=== PATIENT | female | born 1935 | race Caucasian/White ===

== ENCOUNTER 2017-07-11 08:55 | Inpatient (IN) | payer MEDICARE, OTHER ==
--- NOTE | 2017-07-10 10:13 | HP ---
HISTORY AND PHYSICAL CHIEF COMPLAINT: Left shoulder pain. HISTORY OF PRESENT ILLNESS: The patient is an 82-year-old retired right-hand dominant female who presents with progressive left shoulder pain secondary to osteoarthrosis, worsening over the past several years. She is having pain with any attempted use and at night. She has tried previous injections and medications without significant improvement. PAST MEDICAL HISTORY: Significant for diabetes, arthritis, reflux disease. PAST SURGICAL HISTORY: Significant for right total hip arthroplasty, lumbar fusion, and tonsillectomy. CURRENT MEDICATIONS: Prilosec, thyroxine, atorvastatin. ALLERGIES: PENICILLIN. FAMILY HISTORY: Significant for heart disease, COPD, and cancer. SOCIAL HISTORY: Negative for current tobacco or alcohol use. REVIEW OF SYSTEMS: A 16-point review of systems is otherwise reviewed and is noncontributory. PHYSICAL EXAMINATION: On examination, the patient is approximately 5 foot 10, 180 pounds, of mesomorphic habitus. HEENT exam is nonfocal. Neck is supple. On examination of her left shoulder, she is tender about the anterior subacromial space. She has moderate crepitus. Active range of motion, forward elevation 90 degrees, external rotation with arm at side 20 degrees, internal rotation to L5. Motor strength is 5- over 5 for abduction and external rotation. Impingement test is positive. Her distal neurovascular exam appears intact in the left upper extremity. DIAGNOSTIC STUDIES: X-rays to include AP, outlet, and axillary views of the left shoulder obtained in the office show severe glenohumeral joint osteoarthrosis with maintained humeral head to acromial distance. IMPRESSION: Left severe glenohumeral joint osteoarthrosis. RECOMMENDATIONS: I talked to the patient regarding her treatment options. At this point, she is quite symptomatic and limited because of pain despite conservative measures. After thorough discussion, she opts to proceed with surgery. We will plan to proceed with left total shoulder arthroplasty versus reverse total shoulder arthroplasty. Risks and benefits were discussed at length in layman's terms. The patient underwent preoperative medical evaluation by Dr. Reyes. MMNEOL / RONANN: [id number] /
[~2017-07-11 08:55] MED LIST: ACETAMINOPHEN TAB 500 MG TAB PO ONE; CLINDAMYCIN 900 MG in DEXTROSE 5% IN WATER 50 ML IVPB ONE; MELOXICAM 7.5 MG TAB PO ONE; MIDAZOLAM 2 MG/2 ML VIAL IV PRN; ONDANSETRON 4 MG/2 ML VIAL IVP PRN; TRANEXAMIC ACID 1,000 MG in SODIUM CHLORIDE 0.9% 100 ML IVPB ONE; fentaNYL (PF) 50 MCG/ML 2 ML AMP IV PRN
[2017-07-11 09:33] LABS: Glucose,Whole Blood 92 mg/dL (75-99)
[2017-07-11] MEDS ORDERED: LIDOCAINE 1% 20 ML VIAL (10MG/ML) FOR IV START INTRADERMA ONE (09:34)
[2017-07-11] MEDS: LACTATED RINGERS 1,000 ML IV SCH ×2 (09:35→18:14)
[2017-07-11] MEDS ORDERED: MIDAZOLAM 2 MG/2 ML VIAL IV ONE (09:42)
[2017-07-11] MEDS ORDERED: fentaNYL (PF) 50 MCG/ML 2 ML AMP IV ONE (09:42)
--- NOTE | 2017-07-11 10:17 | P.ONQ ---
Anesthesiology Proc Note - PNB - Peripheral Nerve Block Performed Left Interscalene Single Time Out Performed: Yes Procedure Start Time: 09:42 Indication: Acute Post-Operative Pain, Analgesia Specifically requested for management of pain by DrElida: Jeison Mayes Sedation Type: Sedate with meaningful contact maintained Preparation: Sterile Prep Position: Supine Catheter: None Needle Types: Other (see comment) (Pajunk) Needle Size: 50mm (2") Needle Gauge: 21 Technique: Ultrasound Injectate: Other (see comment) (12.5cc 0.5% ropivicaine + 12.5cc 2% lidocaine) Adjunct: Epinephrine (see comment for dilution ratio) (1:200,000) Blood Aspirated: No Pain Paresthesia on Injection Noted: No Resistance on Injection: Normal Events: Uneventful and Well Tolerated
[2017-07-11] MEDS ORDERED: SODIUM CHLORIDE 0.9% 100 ML BAG ONE (10:56)
[2017-07-11] MEDS ORDERED: MIDAZOLAM 2 MG/2 ML VIAL ONE (10:56)
[2017-07-11] MEDS ORDERED: ePHEDrine SULFATE/0.9% NACL/PF 50 MG/5 ML SYRINGE IV ONE (10:56)
[2017-07-11] MEDS ORDERED: LIDOCAINE 1% INJ 10MG/ML (20 ML MDV) ONE (10:56)
[2017-07-11] MEDS ORDERED: fentaNYL (PF) 50 MCG/ML 2 ML AMP ONE (10:56)
[2017-07-11] MEDS ORDERED: PROPOFOL 10 MG/ML 20 ML VIAL IV ONE (10:56)
[2017-07-11] MEDS ORDERED: PHENYLEPHRINE-0.9% NACL SYG 1 MG/10 ML SYRINGE ONE (10:56)
[2017-07-11] MEDS ORDERED: SUCCINYLCHOLINE CHLORIDE 100 MG/5 ML SYR IV ONE (10:56)
[2017-07-11] MEDS ORDERED: TRANEXAMIC ACID 1,000 MG/10 ML VIAL ONE (10:56)
[2017-07-11] MEDS ORDERED: CLINDAMYCIN 1,800 MG in SODIUM CHLORIDE 0.9% IRRIGATIO 3,000 ML IRRIGATION ONE (11:40)
[2017-07-11] MEDS ORDERED: LACTATED RINGERS 1,000 ML IV ONE (12:25)
[2017-07-11] MEDS ORDERED: HYDROmorphone 1 MG/ML 1 ML SYRINGE IVP PRN ×2 (12:50)
[2017-07-11] MEDS ORDERED: SENNOSIDES-DOCUSATE SODIUM 1 EACH TAB PO PRN (12:50)
[2017-07-11] MEDS ORDERED: ONDANSETRON 4 MG/2 ML VIAL IVP PRN (12:50)
[2017-07-11] MEDS ORDERED: ACETAMINOPHEN TAB 325 MG TAB PO PRN (12:52)
--- NOTE | 2017-07-11 13:17 | P.OP ---
Date of Procedure: 07/11/17 Preoperative Diagnosis: Severe left glenohumeral joint osteoarthrosis-primary Postoperative Diagnosis: Same Procedure(s) Performed: Left total shoulder arthroplasty Implants: [employer] size 10 press-fit humeral stem, 52 mm x 18 mm eccentric humeral head, 48 mm pegged cemented glenoid component. Anesthesia: faith MANN Surgeon: Jeison Mayes Automotive Technician #1: Yakov Post Estimated Blood Loss (ml): 100 Pathology: other (Humeral head) Condition: stable Disposition: PACU Indications for Procedure: The patient's 82-year-old female who presents with progressive left shoulder pain secondary to osteoarthrosis despite extensive conservative measures. A discussion of the risks and benefits of operative intervention versus continued conservative measures was made with patient. She opted to proceed with surgery. Operative risks to include infection, neurovascular injury, development blood clots, possible fracture, possible dislocation, possible component loosening and failure need for subsequent procedures was discussed. Informed consent was obtained. Operative Findings: As below Description of Procedure: The patient was brought to the operating room, and after induction of general anesthesia was placed into a beachchair position. Bony prominences were appropriately padded. The left upper extending was prepped and draped in normal fashion. The bony outlines the acromion, distal clavicle, and coracoid process were outlined with a skin marker. A deltopectoral incision was then made lateral to the coracoid process extending approximately 12 cm. The skin was incised sharply. Subcu tissues were divided bluntly. Electrocautery was used for hemostasis. The deltopectoral interval was identified and the cephalic vein gently retracted laterally with the deltoid. Subdeltoid adhesions were bluntly dissected. A self-retaining retractor was placed. The upper one third of the pectoralis tendon was released with electrocautery to help facilitate exposure. The clavipectoral fascia was opened and the conjoined tendon was gently retracted medially. The bicipital groove was opened and the rotator cuff interval was opened. The rotator cuff appeared to be intact. Significant joint effusion was noted. The biceps was tenotomized and allowed to retract distally. The lesser tuberosity was osteotomized with a small sagittal saw. This was tagged with #2 Ethibond. The capsule was released from the anterior humeral neck under direct visualization. The humeral head was fully exposed. The inferior osteophytes and loose bodies were carefully removed. The head was gently dislocated. A starting hole was made in line with the humeral shaft and bicipital groove. The canal was then reamed by hand up to size 10. There is good distal fit and chatter. The cutting guide was then placed. I planned on 30 of retroversion. I planned on resection at the rotator cuff insertion. The cutting block was pinned in place. The humeral head cut was then made. The inferior osteophytes were carefully removed flush with the [place] cortical bone. A protecting plate was placed along the cut surface. Attention was then paid towards preparing the glenoid. Retractors were placed anterior and posteriorly. The labral tissue was debrided from a 6:00 to 12 o'clock position anteriorly. The posterior labrum was also released. There was adequate glenoid exposure at this point. A guidepin was placed in the central portion of the glenoid with the alignment guide. The glenoid was reamed out a bleeding bony surface with a 48 mm reamer. It sized most appropriate size 48 mm. The central pedicle was drilled. The peripheral peg holes were drilled with the alignment guide. The trial 48 mm central peg glenoid was placed and was fully seated. There was good anterior to posterior in addition to a superior to inferior fit. The trial component was removed. Pulsatile lavage was utilized. The bony surfaces were then dried. The peripheral peg holes were pressurized with cement and excess cement was removed. The central peg on the 48 mm component was bone grafted. This was then inserted and fully seated. After the cement had sufficiently hardened , attention was then paid towards preparing the proximal humerus. The appropriate broach was placed in 30 of retroversion and was fully seated. There is good rotational stability. A trial 52 x 18 mm eccentric head was placed in the appropriate alignment. The shoulder was gently reduced. It was taken through range of motion. I felt I was stable in flexion and extension with internal and external rotation. The trial components were then removed. A #2 Ethibond placed lateral to the bicipital groove for reattachment of the lesser tuberosity. The final size 10 press-fit humeral stem was inserted in 30 of retroversion and was fully seated. Again there was good rotational stability. Pulsatile lavage was again utilized. The 52 mm x 18 mm eccentric head was placed in the appropriate rotation to restore humeral height. This was gently impacted. The shoulder again was reduced. Again it was stable in flexion and extension with internal and external rotation. I felt there was adequate [place] of soft tissue tension. Pulsatile lavage was again utilized. The rotator interval was closed with #2 Ethibond suture. The lesser tuberosity was reattached with #2 Ethibond suture. The deltopectoral was closed with interrupted 2-0 Vicryl sutures. The subcu tissues reapproximated interrupted 2-0 Vicryl sutures. The skin was reapproximated with 3-0 subcuticular Prolene suture. Mastisol and Steri-Strips were applied. A sterile dressing was applied in addition to a sling. The patient was awoken from general anesthesia and transferred to recovery room in good condition. Blood loss was estimated at 100 mL. No complications were incurred. Sponge and needle counts were correct at the end the case.
--- NOTE | 2017-07-11 14:04 | XR ---
EXAMINATION TYPE: XR shoulder limited LT DATE OF EXAM: 07/11/2017 CLINICAL HISTORY: Status post total left shoulder arthroplasty TECHNIQUE: Single frontal view of left shoulder is obtained. COMPARISON: None. FINDINGS: Metallic hardware from left shoulder arthroplasty is felt satisfactory position. Subcutaneo us gas surrounds visualized portion of proximal humerus. Note is made of partial visualization of lef t midlung opacity could reflect atelectasis and/or infiltrate. This could also reflect fluid tracking into fissure. IMPRESSION:: Metallic hardware from left shoulder arthroplasty is satisfactory in position. Left midl bailey opacity could reflect pleural effusion or atelectasis and/or infiltrate. Consider chest x-ray cor relation.
[2017-07-11] MEDS: HYDROmorphone 1 MG/ML 1 ML SYRINGE IVP ONE ×2 (16:02→17:20)
[2017-07-11] MEDS ORDERED: ONDANSETRON 4 MG/2 ML VIAL IVP ONE (16:06)
[2017-07-11 18:44] VITALS: BMI 24.0
[2017-07-11] MEDS: traMADol 50 MG TAB PO SCH ×2 (19:11→22:23)
[2017-07-11] MEDS: CLINDAMYCIN 900 MG in DEXTROSE 5% IN WATER 50 ML IVPB SCH ×2 (19:12)
[2017-07-11] MEDS ORDERED: ATORVASTATIN 20 MG TAB PO SCH (21:00)
[2017-07-12] MEDS ORDERED: ONDANSETRON 4 MG/2 ML VIAL ONE (01:25)
[2017-07-12] MEDS ORDERED: HYDROmorphone 1 MG/ML 1 ML SYRINGE ONE (01:25)
[2017-07-12] MEDS: CLINDAMYCIN 900 MG in DEXTROSE 5% IN WATER 50 ML IVPB SCH ×2 (03:44)
[2017-07-12] MEDS: LEVOTHYROXINE 50 MCG TAB PO SCH (05:11)
[2017-07-12 06:40] LABS: Basophils % (A) 0 %; CHCM 31.2; Eosinophils % (A) 0 %; HCT 39.8 % (34.0-46.0); HDW 2.25; HGB 12.2 gm/dL (11.4-16.0); Hypochromasia Slight; Luc # (Auto) 0.14; Luc % (Auto) 1; Lymphocytes # (A) 0.9 k/uL (1.0-4.8); Lymphocytes % (A) 8 %; MCH 29.5 pg (25.0-35.0); MCHC 30.5 g/dL (31.0-37.0); MCV 96.7 fL (80.0-100.0); Mean Platelet Volume 7.7; Monocytes # (A) 0.8 k/uL (0-1.0); Monocytes % (A) 6 %; Neutrophils # (A) 10.1 k/uL (1.3-7.7); Neutrophils % (A) 85 %; RBC 4.12 m/uL (3.80-5.40); RDW 13.8 % (11.5-15.5); WBC 11.9 k/uL (3.8-10.6); WBC (Perox) 12.31
[2017-07-12] MEDS ORDERED: PANTOPRAZOLE 40 MG TABLET PO SCH (07:30)
[2017-07-12] MEDS: CALCIUM CARBONATE 500 MG CHEWABLE PO SCH (08:18)
[2017-07-12] MEDS: LACTATED RINGERS 1,000 ML IV SCH (08:19)
[2017-07-12] MEDS ORDERED: ENOXAPARIN 30 MG/0.3 ML SYRINGE SQ SCH (09:00)
[2017-07-12] MEDS ORDERED: ALFALFA PO SCH (09:00)
[2017-07-12] MEDS ORDERED: OMEGA PO SCH (09:00)
[2017-07-12] MEDS: traMADol 50 MG TAB PO SCH ×4 (10:40→21:20)
--- NOTE | 2017-07-12 12:46 | P.PN ---
Subjective Progress Note Date: 07/12/17 Principal diagnosis: Status post left total shoulder arthroplasty Patient seen today resting in her hospital bed, he is ecchymosis present at bedside. Patient is doing very well, her pain is controlled. She denies any headaches, lightheadedness, chest pain or shortness of breath. Objective - Vital Signs Vital signs: Vital Signs Temp 97.5 F L 07/12/17 07:00 Pulse 69 07/12/17 08:00 Resp 17 07/12/17 08:00 BP 139/82 07/12/17 07:00 Pulse Ox 93 L 07/12/17 07:00 Intake & Output 07/11/17 07/12/17 07/12/17 18:59 06:59 18:59 Intake Total 1807 450 Output Total 400 400 300 Balance 1407 50 -300 Weight 77.111 kg Intake: IV 1807 Intake, IV Titration 450 Amount Clindamycin 900 mg In 50 Dextrose 5% in Water 50 ml @ 100 mls/hr IVPB Q8H ELVIA Rx#:[id number] Lactated Ringers 1,000 ml 400 @ 50 mls/hr IV .Q20H ELVIA Rx#:[id number] Output: Urine 300 400 300 Uretheral (Hall) 300 Estimated Blood Loss 100 Other: Voiding Method Indwelling Catheter Indwelling Catheter Indwelling Catheter - Exam Left upper extremity: Incision is clean, dry, and intact. Sensory exam to light touch throughout the extremities intact. She is able to wiggle all the fingers, flexion and extension and the wrist are intact. - Labs CBC & Chem 7: 07/12/17 06:13 Labs: Abnormal Lab Results - Last 24 Hours (Table) 07/12/17 Range/Units 06:13 WBC 11.9 H (3.8-10.6) k/uL MCHC 30.5 L (31.0-37.0) g/dL Neutrophils # 10.1 H (1.3-7.7) k/uL Lymphocytes # 0.9 L (1.0-4.8) k/uL Assessment and Plan Plan: Assessment: 1. Postop day #1 status post left total shoulder arthroplasty Plan: 1. Pain control, continue supportive oral medication 2. GI and DVT prophylaxis, aspirin 325 mg twice a day 3. Wound care instructions were discussed with patient 4. Pendular exercises at home 5. Medical recommendations 6. Discharge planning: Patient will be discharged home today Time with Patient: Less than 30
--- NOTE | 2017-07-12 12:48 | P.DS ---
Providers Date of admission: 07/11/17 08:55 Expected date of discharge: 07/12/17 Attending physician: Jeison Mayes Primary care physician: Marisol Yanezbagh [facility] Hospital Course: Date of admission: 07/11/2017 Date of discharge: 07/12/2017 Admission diagnosis: Status post left total shoulder arthroplasty Discharge diagnosis: Same Attending physician: Dr. Mayes Surgical procedures: Left total shoulder arthroplasty Brief history: Patient is a 82-year-old female with a history of progressive primary left shoulder osteoarthritis. At this point patient has failed conservative treatment measures and has opted to proceed with a elective left total shoulder arthroplasty. Hospital course: Details of patient's surgery can be found in operative report. Patient tolerated the procedure well and was subsequently transported to orthopedic floor. Patient's orthopeidc and medical care was provided daily. Patient had daily laboratory tests performed for evaluation of overall blood counts. Patient had daily physical therapy to include strengthening range of motion as well as education with walker ambulation. Patient was treated with Lovenox for their postoperative DVT prophylaxis during their inpatient stay. Patient was noted to have a relatively uneventful postoperative course. Patient reported satisfactory pain control with oral pain medications by postoperative day 0. Patient showed satisfactory progress with physical therapy. Patient moved steadily through the program and had no difficulty meeting the goals by postoperative day 0. Given patient's otherwise satisfactory course and having met physical therapy goals, plan is to discharge patient home on postoperative day 0. Discharge condition/disposition: Patient will be discharged home in stable condition. Discharge medications: Instructions are given on resumption of patient's normal daily medications per primary care recommendation, in addition patient will be prescribed tramadol 50 mg, aspirin 325 mg. Discharge instructions: 1. Wound care and infection precautions, keep incision dry and covered while showering, no lotions, creams, moisturizers. No soaking, tubs, pools, hottubs. Do not scrub over the incision. 2. Utilize arm sling, pendular exercises 2-3 times a day 3. Ice and elevate when necessary. Do not exceed 20 minutes per hour with ice pack. 4. Utilize compression sleeve until seen at first follow up appointment. 5. Visiting nursing care. 6. Pain meds and anticoagulants per prescription. 7. Pain medication has potential to cause constipation. Increase oral fluid and fiber intake. Contact primary care provider if you have not had a bowel movement within 48 hours after discharge 8. No anti-inflammatory medication until discussed at first post operative visit, this including Motrin, Aleve, Mobic, Diclofenac 9. Follow up in office at 2 weeks postop with Marcelino Post PA-C 10. Follow up with your primary care doctor 7-10 days after discharge. 11. Contact [facility] with any questions, . Procedures: Left total shoulder arthroplasty Patient Condition at Discharge: Good Plan - Discharge Summary Discharge Rx Participant: Yes New Discharge Prescriptions: New Aspirin 325 mg PO BID #60 tab traMADol HCl [Ultram] 50 mg PO Q6H PRN #40 tab PRN Reason: Pain No Action Omeprazole [PriLOSEC] 20 mg PO AC-BRKFST Levothyroxine Sodium [Synthroid] 50 mcg PO DAILY Atorvastatin [Lipitor] 20 mg PO HS Multivitamins, Thera [Multivitamin (formulary)] 1 tab PO DAILY [place]-3 1 cap PO DAILY Calcium Carbonate [Calcium] 1,200 mg PO DAILY [place] 3,250 tab PO DAILY Discharge Medication List [place] 3,250 tab PO DAILY 07/05/17 [History] Atorvastatin [Lipitor] 20 mg PO HS 07/05/17 [History] Calcium Carbonate [Calcium] 1,200 mg PO DAILY 07/05/17 [History] Levothyroxine Sodium [Synthroid] 50 mcg PO DAILY 07/05/17 [History] Multivitamins, Thera [Multivitamin (formulary)] 1 tab PO DAILY 07/05/17 [History ] [place]-3 1 cap PO DAILY 07/05/17 [History] Omeprazole [PriLOSEC] 20 mg PO AC-BRKFST 07/05/17 [History] Aspirin 325 mg PO BID #60 tab 07/12/17 [Rx] traMADol HCl [Ultram] 50 mg PO Q6H PRN #40 tab 07/12/17 [Rx] Follow up Appointment(s)/Referral(s): [facility], [NON-STAFF] - Yakov Post PAC [PHYSICIAN MANAGER SIGN] - 2 Weeks Activity/Diet/Wound Care/Special Instructions: Orthopedic Discharge Instructions: 1. Wound care and infection precautions, [keep incision dry and covered while showering], no lotions, creams, moisturizers. No soaking, pools, hot tubs. Do not scrub over incision. 2. Utilize arm sling, pendular exercises 2-3 times a day with 3. Ice and elevate when necessary. Do not exceed 20 minutes per hour with ice pack. 4. Utilize compression sleeve until seen at first follow up appointment. 5. Visiting nursing care. 6. Pain meds and anticoagulants per prescription. 7. Pain medication has potential to cause constipation. Increase oral fluid and fiber intake. Contact primary care provider if you have not had a bowel movement within 48 hours after discharge. 8. No anti-inflammatory medication until discussed at first post operative visit, this including Motrin, Aleve, Mobic, Diclofenac. 9. Follow up in office at 2 weeks postop with Marcelino Post PA-C 10. Follow up with your primary care doctor 7-10 days after discharge. 11. Contact [facility] with any questions, . Discharge Disposition: HOME WITH HOME HEALTH SERVICES
[2017-07-12] MEDS: MULTIVITAMINS, THERA 1 EACH TAB PO SCH (15:00)
[2017-07-12 15:42] VITALS: RESP 16
[2017-07-12] MEDS ORDERED: PANTOPRAZOLE 40 MG/10 ML VIAL IVP ONE (16:15)
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
[2017-07-12] MEDS: PANTOPRAZOLE 40 MG/10 ML VIAL IVP SCH (21:20)
[2017-07-13 01:22] VITALS: BP 127/71; TEMP 98.4
[2017-07-13] MEDS: LACTATED RINGERS 1,000 ML IV SCH (04:36)
[2017-07-13] MEDS: LEVOTHYROXINE 50 MCG TAB PO SCH (04:37)
[2017-07-13 07:20] LABS: Basophils % (A) 0 %; CHCM 31.1; Eosinophils # (A) 0.1 k/uL (0-0.7); Eosinophils % (A) 1 %; HCT 33.4 % (34.0-46.0); HDW 2.27; HGB 10.8 gm/dL (11.4-16.0); Hypochromasia Slight; Luc # (Auto) 0.13; Luc % (Auto) 1; Lymphocytes # (A) 1.2 k/uL (1.0-4.8); Lymphocytes % (A) 12 %; MCH 30.5 pg (25.0-35.0); MCHC 32.4 g/dL (31.0-37.0); Mean Platelet Volume 8.6; Monocytes # (A) 0.9 k/uL (0-1.0); Monocytes % (A) 9 %; Neutrophils # (A) 7.4 k/uL (1.3-7.7); Neutrophils % (A) 77 %; RBC 3.56 m/uL (3.80-5.40); RDW 14.8 % (11.5-15.5); WBC 9.7 k/uL (3.8-10.6); WBC (Perox) 10.22
[2017-07-13] MEDS: PANTOPRAZOLE 40 MG/10 ML VIAL IVP SCH (08:43)
[2017-07-13 08:56] VITALS: PULSE 69
[2017-07-13] MEDS ORDERED: HYDROmorphone 0.5 MG/0.5 ML SYRINGE IVP PRN ×2 (09:04→09:05)
[2017-07-13] MEDS: CALCIUM CARBONATE 500 MG CHEWABLE PO SCH (09:37)
[2017-07-13] MEDS: traMADol 50 MG TAB PO SCH ×2 (09:37→14:07)
--- NOTE | 2017-07-13 11:18 | P.PN ---
Subjective Progress Note Date: 07/13/17 Patient is status post left total shoulder arthroplasty. She was initially was be discharged yesterday however, she had 2 episodes of vomiting black material. Patient was placed on Protonix and aspirin was held. GI service was consulted. Hemoglobin has dropped from 12.2-10.8. Patient has been given regular breakfast this morning. She's had no further episodes of vomiting. And if there is no recurrence of vomiting per nursing staff GI service recommended the patient could be discharged home if she tolerates diet. Patient is passing gas. No abdominal pain. No bowel movement. No further nausea and vomiting. No difficulty urinating. Pain is controlled the left shoulder. Objective - Vital Signs Vital signs: Vital Signs Temp 98.4 F 07/13/17 00:00 Pulse 69 07/13/17 08:00 Resp 16 07/13/17 08:00 BP 127/71 07/13/17 00:00 Pulse Ox 92 L 07/13/17 00:00 Intake & Output 07/12/17 07/13/17 07/13/17 18:59 06:59 18:59 Output Total 500 Balance -500 Weight 77.111 kg 77.111 kg Output: Urine 300 Uretheral (Hall) 300 Emesis 200 Other: Voiding Method Indwelling Catheter Toilet # Voids 2 4 # Bowel Movements 1 1 - Exam Head normocephalic Neck supple Lungs clear to auscultation bilaterally no wheezing or crackles Heart regular rate and rhythm S1-S2, no rub or gallop Abdomen is soft nontender nondistended positive bowel sounds no hepatosplenomegaly Extremities no edema. Left arm dressing clean dry and it tapped for the left shoulder. Arm is in sling. +2 radial pulse. 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 #2 episodes of vomiting of black material twice today, at this time will hold Lovenox withhold ASA Will consult gastroenterology for possible EGD if those episodes continue, patient was placed on Protonix 40 mg IV twice daily. Patient evaluated by GI service. The plan is to see if patient tolerates diet before discharge home. At this point there is no EGD scheduled #3 underlying history of hypothyroidism continue with Synthroid 50 g daily #4 underlying history of hyperlipidemia maintained on Lipitor continue Will follow during this admission for medical management Anticipating discharge home if patient tolerates diet without any further episodes of vomiting and is cleared by GI service. I performed an examination of the patient and discussed their management with the physician [employer]. I have reviewed the Physician [employer] Dec[employer]ator's notes and agree with the documented findings and plan of care
--- NOTE | 2017-07-13 12:16 | CONS ---
CONSULTATION DATE OF SERVICE: 07/13/2017 REASON FOR CONSULTATION: Coffee-grounds emesis. HISTORY OF PRESENT ILLNESS: The patient is an 82-year-old pleasant white female who underwent an elective left shoulder surgery 2 days ago and following the surgery, had some epigastric discomfort and had two episodes of coffee-grounds emesis. We are hence consulted in regards to this issue. Her surgery was 2 days ago and she had two episodes of emesis yesterday. Overnight, she did not have any further episodes. This morning she is feeling good. No abdominal pain. No nausea, vomiting. She denies any prior history of peptic ulcer disease. No recent NSAID use. She states she is hungry and wants to eat now. PAST MEDICAL HISTORY: Significant for GERD, hypertension, hyperlipidemia, hypothyroidism. PAST SURGICAL HISTORY: Recent left shoulder surgery 2 days ago, history of total right hip, lesion of the back. MEDICATIONS: At home include multivitamin, Synthroid, Lipitor, calcium, tramadol, aspirin, Prilosec. SOCIAL HISTORY: No smoking or alcohol use. ALLERGIES: HYDROCODONE, PENICILLIN, LATEX. FAMILY HISTORY: Brother has DVT. Sister had some kind of a cancer. REVIEW OF SYSTEMS: CARDIOPULMONARY: No chest pain, shortness of breath. GENITOURINARY: No dysuria or hematuria. MUSCULOSKELETAL: Unremarkable. SKIN: Unremarkable. ENDOCRINE: Unremarkable. PSYCHIATRIC: Unremarkable. NEUROLOGY: Unremarkable. ENT: Vision unremarkable. CONSTITUTIONAL: No recent weight loss. No fever, chills, night sweats. PHYSICAL EXAMINATION: She appears comfortable, in no apparent distress. Vital signs are stable. Blood pressure is 127/71, pulse 86, temperature 98.4. HEENT examination is remarkable, conjunctivae or pink, sclera nonicteric. Oral cavity no lesions. NECK: No JVD or lymph node enlargement. Chest was clear to auscultation. HEART: Regular rate and rhythm. Abdomen is soft. Bowel sounds are positive. No organomegaly. EXTREMITIES: No pedal edema. Left shoulder in cast. NEURO: Alert and oriented x3. No focal deficits. LABS: From yesterday, hemoglobin was 12.2, this morning is 10.8. WBC 11.9 and platelets are normal. IMPRESSION: This is a lady who presents to the hospital for an elective left shoulder surgery, which was done 2 days ago and yesterday had some epigastric discomfort and had a small amount of coffee-grounds emesis x1. Hemoglobin remained stable. She presently is symptom-free for the last 24 hours. No prior history of peptic ulcer disease, presently hemodynamically stable and no active bleeding. RECOMMENDATIONS: 1. Continue with Protonix 40 mg q.12 hours. 2. Advance diet as tolerated. 3. If the patient is doing well, she can be discharged home with outpatient and continue with Protonix 40 mg twice daily for 1 month and then decrease it to once daily. If she has further symptoms, she can follow up in the office. Thank you for this consultation. MMNEOL / RONANN: [id number] /
--- NOTE | 2017-07-13 12:33 | P.PN ---
Subjective Progress Note Date: 07/13/17 Principal diagnosis: Status post left total shoulder arthroplasty Patient seen today resting in her hospital bed, she appears comfortable. Patient did stay last night due to concerns from internal medicine and GI regarding the morning episode of emesis with dark material. They mention if she had no further episodes she will be discharged home today. Patient states that she feels well at this time. Objective - Vital Signs Vital signs: Vital Signs Temp 98.4 F 07/13/17 00:00 Pulse 69 07/13/17 08:00 Resp 16 07/13/17 08:00 BP 127/71 07/13/17 00:00 Pulse Ox 92 L 07/13/17 00:00 Intake & Output 07/12/17 07/13/17 07/13/17 18:59 06:59 18:59 Output Total 500 Balance -500 Weight 77.111 kg 77.111 kg Output: Urine 300 Uretheral (Hall) 300 Emesis 200 Other: Voiding Method Indwelling Catheter Toilet # Voids 2 4 # Bowel Movements 1 1 - Exam Left upper extremity: Incision is clean, dry, and intact. Sensory exam to light touch throughout the extremities intact. She is able to wiggle all the fingers, flexion and extension and the wrist are intact. - Labs CBC & Chem 7: 07/13/17 06:35 Labs: Abnormal Lab Results - Last 24 Hours (Table) 07/13/17 Range/Units 06:35 RBC 3.56 L (3.80-5.40) m/uL Hgb 10.8 L (11.4-16.0) gm/dL Hct 33.4 L (34.0-46.0) % Assessment and Plan Plan: Assessment: 1. Postop day #2 status post left total shoulder arthroplasty Plan: 1. Pain control, continue supportive oral medication 2. GI and DVT prophylaxis, aspirin 325 mg twice a day 3. Wound care instructions were discussed with patient 4. Pendular exercises at home 5. Medical recommendations 6. Discharge planning: Patient will be discharged home today Time with Patient: Less than 30
[2017-07-13] MEDS: MULTIVITAMINS, THERA 1 EACH TAB PO SCH (13:53)
== END 2017-07-13 15:20 | disposition home health service (06) | DRG 483 ==
LOC: 2ORMAIN 08:55 → 3SUR 13:05
PROVIDERS: ADMIT Orthopaedic Surgery; ATTEND Orthopaedic Surgery
PROC: 0RRK0JZ Replacement of Left Shoulder Joint with Synthetic Substitute, Open Approach (ICD-10-PCS; principal; 2017-07-11 10:55)
DX: M19.012 Primary osteoarthritis, left shoulder (principal); E11.9 Type 2 diabetes mellitus without complications; I10 Essential (primary) hypertension; E03.9 Hypothyroidism, unspecified; E78.5 Hyperlipidemia, unspecified; K21.9 Gastro-esophageal reflux disease without esophagitis; Z79.82 Long term (current) use of aspirin; Z79.899 Other long term (current) drug therapy; Z82.5 Family history of asthma and other chronic lower respiratory diseases; Z96.641 Presence of right artificial hip joint; Z88.0 Allergy status to penicillin
CPT/HCPCS: 64415; 85025; 88300

== ENCOUNTER → 2020-02-25 | Outpatient (CLI) | payer MEDICARE, OTHER | END | disposition home or self-care (01) | LOC: LABPAT 10:09 | PROVIDERS: ATTEND Orthopaedic Surgery | DX: Z01.812 Encounter for preprocedural laboratory examination (principal) | CPT/HCPCS: 87070 ==

== ENCOUNTER 2020-03-03 08:29 | Inpatient (IN) | payer MEDICARE, OTHER ==
[2020-02-27 08:48] VITALS: BMI 23.7
--- NOTE | 2020-03-02 11:43 | HP ---
HISTORY AND PHYSICAL CHIEF COMPLAINT: Right shoulder pain. HISTORY OF PRESENT ILLNESS: Patient is an 85-year-old, right-hand dominant, retired female who presents with progressive right shoulder pain worsening over the past 1-2 years. She notes significant stiffness along with pain with any attempted use. She is also having significant night symptoms. She has tried medications in addition to therapy and injections without much relief. PAST MEDICAL HISTORY: Significant for reflux disease, hypothyroidism, and type 2 diabetes along with arthritis. PAST SURGICAL HISTORY: Significant for spinal fusion, total hip arthroplasty, tonsillectomy, and left total shoulder arthroplasty. CURRENT MEDICATIONS: Levothyroxine and omeprazole. She notes allergies to PENICILLIN. FAMILY HISTORY: Significant for cancer and heart disease. SOCIAL HISTORY: Negative for current tobacco or alcohol use. 16 POINT REVIEW OF SYSTEMS: Otherwise reviewed and is noncontributory. PHYSICAL EXAMINATION: On examination, the patient is approximately 5 foot 10, 180 pounds of mesomorphic habitus. HEENT: Exam is nonfocal. Neck is supple. On examination of her right shoulder, she is tender about the anterior subacromial space. She has moderate subacromial crepitus. Active range of motion, forward elevation 60 degrees, external rotation with arms at side 15 degrees, internal rotation to S1. Motor strength is 5/5 for abduction and external rotation. Passively, I am able to forward elevate her to 110 degrees. Impingement test, NEER test, and Speed test are positive. Her distal neurovascular exam appears intact otherwise in the right upper extremity. Three views of the right shoulder obtained in the office show severe glenohumeral joint osteoarthrosis with [id number] changes. There is subchondral sclerosis. IMPRESSION: Right severe glenohumeral joint osteoarthrosis-symptomatic. RECOMMENDATIONS: I talked to the patient at length regarding her condition and treatment options. At this point, she is quite symptomatic and opts to proceed with surgery. Will plan to proceed with right total shoulder arthroplasty. Risks and benefits were discussed at length in layman's terms. We will likely keep the patient for a 23-hour hold postoperatively. KAYLEIGH / RONANN: [id number] /
[~2020-03-03 08:29] MED LIST changes: -CLINDAMYCIN 900 MG in DEXTROSE 5% IN WATER 50 ML IVPB ONE; -MIDAZOLAM 2 MG/2 ML VIAL IV PRN; -ONDANSETRON 4 MG/2 ML VIAL IVP PRN; -fentaNYL (PF) 50 MCG/ML 2 ML AMP IV PRN
[2020-03-03] MEDS ORDERED: MIDAZOLAM 2 MG/2 ML VIAL IV PRN (09:00)
[2020-03-03] MEDS ORDERED: LIDOCAINE 1% (10MG/ML) FOR IV START INTRADERMA PRN (09:00)
[2020-03-03] MEDS ORDERED: fentaNYL (PF) 50 MCG/ML 2 ML AMP IV PRN (09:00)
[2020-03-03] MEDS ORDERED: ONDANSETRON 4 MG/2 ML VIAL IVP ONE (09:00)
[2020-03-03] MEDS ORDERED: DEXAMETHASONE SOD PHOSPHATE 10 MG/ML 1 ML VIAL IV ONE (09:00)
[2020-03-03] MEDS ORDERED: ACETAMINOPHEN TAB 500 MG TAB ONE (12:46)
[2020-03-03] MEDS ORDERED: ONDANSETRON 4 MG/2 ML VIAL ONE (12:46)
[2020-03-03 12:53] LABS: Glucose,Whole Blood 92 mg/dL (75-99)
[2020-03-03] MEDS: LACTATED RINGERS 1,000 ML IV SCH (12:56)
[2020-03-03] MEDS ORDERED: ROCURONIUM BROMIDE 10 MG/ML 5 ML VIAL IV ONE (13:30)
[2020-03-03] MEDS ORDERED: SUCCINYLCHOLINE CHLORIDE 100 MG/5 ML SYR IV ONE (13:30)
[2020-03-03] MEDS ORDERED: ROPIVACAINE 5 MG/ML 30 ML VIAL ONE (13:30)
[2020-03-03] MEDS ORDERED: NEOSTIGMINE 1 MG/ML 10 ML VIAL ONE (13:30)
[2020-03-03] MEDS ORDERED: SODIUM CHLORIDE 0.9% 100 ML BAG ONE (13:30)
[2020-03-03] MEDS ORDERED: LIDOCAINE 1% INJ 10MG/ML (20 ML MDV) ONE (13:30)
[2020-03-03] MEDS ORDERED: PROPOFOL 10 MG/ML 20 ML VIAL IV ONE (13:30)
[2020-03-03] MEDS ORDERED: fentaNYL (PF) 50 MCG/ML 2 ML AMP ONE (13:30)
[2020-03-03] MEDS ORDERED: MIDAZOLAM 2 MG/2 ML VIAL ONE (13:30)
[2020-03-03] MEDS ORDERED: TRANEXAMIC ACID 1,000 MG/10 ML VIAL ONE (13:30)
[2020-03-03] MEDS ORDERED: PHENYLEPHRINE-0.9% NACL SYG 1 MG/10 ML SYRINGE ONE (13:30)
[2020-03-03] MEDS ORDERED: GLYCOPYRROLATE 0.2 MG/ML 2 ML VIAL ONE (13:30)
[2020-03-03] MEDS ORDERED: ceFAZolin 3,000 MG in SODIUM CHLORIDE 0.9% IRRIGATIO 3,000 ML IRRIGATION ONE (14:06)
[2020-03-03] MEDS ORDERED: LACTATED RINGERS 1,000 ML IV ONE ×2 (14:46)
[2020-03-03] MEDS ORDERED: HYDROmorphone 0.5 MG/0.5 ML SYRINGE IVP PRN (15:23)
[2020-03-03] MEDS ORDERED: ONDANSETRON 4 MG/2 ML VIAL IVP PRN (15:23)
[2020-03-03] MEDS ORDERED: ACETAMINOPHEN TAB 325 MG TAB PO PRN (15:27)
--- NOTE | 2020-03-03 15:47 | P.OP ---
Date of Procedure: 03/03/20 Preoperative Diagnosis: Right severe glenohumeral joint osteoarthrosis Postoperative Diagnosis: Same Procedure(s) Performed: Right total shoulder arthroplasty Implants: [employer] size 14 press-fit humeral stem was size 14 body, 52 x 18 mm eccentric humeral head, 48 mm cemented pegged glenoid component. Anesthesia: MACKENZIE Surgeon: Jeison Mayes [employer] Teacher #1: Yakov Post Estimated Blood Loss (ml): 150 Pathology: other (Humeral head) Condition: stable Disposition: PACU Indications for Procedure: The patient's an 85-year-old female who presents with progressive right shoulder pain secondary osteoarthrosis despite conservative measures. A discussion of the risks and benefits of operative intervention versus continued conservative measures was made with the patient. She opted to proceed with surgery. Operative risks to include infection, neurovascular injury, development of blood clots, possible fracture, possible component loosening and need for subsequent procedures was discussed. Informed consent was obtained. Operative Findings: As below Description of Procedure: The patient was brought to the operating room, and after induction of general anesthesia was placed in the beachchair position. The bony prominences were appropriately padded. The right upper extremity was prepped and draped in normal fashion. A deltopectoral incision was then made lateral to the coracoid process extending approximately 12 cm. The skin was incised sharply. Subcutaneous tissues were divided bluntly. Electrocautery was used for hemostasis. The deltopectoral interval was identified and the cephalic vein gently retracted laterally with the deltoid. Subdeltoid adhesions were bluntly dissected. A self-retaining retractor was placed. The clavipectoral fascia was opened and the conjoined tendon gently retracted medially. The upper one third of the pectoralis major was released to help facilitate exposure. The biceps was identified and the sheath was opened. The rotator interval was opened. The biceps was tenotomized and allowed to retract distally. The lesser tuberosity osteotomy was performed with a small sagittal saw. This completed with an osteotome. The humeral head was then exposed releasing the capsule off the humeral neck. The shoulder was gently dislocated. A starting hole was made in the head in line with the humeral shaft. The shaft was reamed by hand up to 14 mm. There is good distal chatter. The cutting guide was placed planning on 8 cut flush with the rotator cuff insertion and 30 of retroversion. The cutting block was pinned in place. The humeral head cut was then made. This measured most appropriately at 52 x 18 mm. Residual inferior osteophytes were carefully removed flush with the skull valley cortical bone. A posterior glenoid retractor was placed. The glenoid was then exposed releasing the labrum from the 12 to 6 o'clock position. Residual labral tissue was removed. The glenoid sized most appropriate [] mm. A guidewire was then inserted planning on the appropriate version. The glenoid was reamed down to a bleeding bony surface. The central peg hole was drilled. The alignment guide was placed in the peripheral peg holes drilled. The trial size 48 mm glenoid was placed and was fully seated. There was good anterior to posterior and inferior to superior fit. The trial component was removed. Pulsatile lavage was utilized. The bony surface was dried. The peripheral peg holes were then pressurized with cement utilizing a syringe. Excess cement was removed. A central peg glenoid was then placed and was fully seated. This was gently impacted. This was held in place until the cement had sufficiently hardened. Attention was then paid again towards preparing the proximal humerus. The appropriate broach was placed in 30 of retroversion and was fully seated. An eccentric 52 x 18 mm humeral head was placed. The shoulder was gently reduced. It was taken through a range of m otion. It was felt to be stable in flexion and extension with internal and external rotation. I felt there was adequate latter-day of soft tissue tension. The shoulder was gently dislocated. The trial components were then removed. A #2 Ethibond was placed laterally for reattachment of the lesser tuberosity. The humeral stem was inserted in 30 of retroversion and was fully seated. There was good rotational stability. The eccentric 52 x 18 mm humeral head was gently impacted. The shoulder was then gently reduced and taken through range of motion and was felt to be stable. Pulsatile lavage was utilized. Lesser tuberosity was reattached utilizing #2 Ethibond suture. The rotator interval was closed with #2 Ethibond suture. She had minimal drainage at this point therefore a deep drain was not placed. The deltopectoral interval was closed with interrupted 2-0 Vicryl sutures. The subcu tissues were reapproximated with interrupted 2-0 Vicryl sutures. The skin was reprepped with 3-0 subcuticular Prolene suture. Steri-Strips were applied. A sterile dressing was applied in addition to a sling. The patient was then awoken from general anesthesia and transferred to recovery room in good condition. Blood loss was estimated at 150 mL. No complications were incurred. Sponge and needle counts were correct at the end the case. Marcelino SUAREZ assisted during the major components the case to include exposure, resection, implantation, and closure.
[2020-03-03] MEDS: HYDROmorphone 0.5 MG/0.5 ML SYRINGE IVP PRN ×2 (15:54→16:26)
--- NOTE | 2020-03-03 16:12 | P.ANPRN ---
Procedure Note - Anesthesia - Nerve Block Performed Right Interscalene Single Time Out Performed: Yes (1559) Date of Procedure: 03/03/20 Procedure Start Time: 16:00 Procedure Stop Time: 16:09 Location of Patient: PreOp Indication: Acute Post-Operative Pain, Requested by Surgeon Specifically requested for management of pain by : Jeison Mayes Sedation Type: Sedate with meaningful contact maintained Preparation: Sterile Prep Position: Supine Catheter: None Needle Types: Pajunk Needle Gauge: 21 Ultrasound used to visualize needle placement: Yes Ultrasound used to observe medication spread: Yes Injectate: 0.5% Ropivacaine (see comment for volume) (20cc) Blood Aspirated: No Pain Paresthesia on Injection Noted: No Resistance on Injection: Normal Image Stored and Saved: Yes Events: Uneventful and Well Tolerated
--- NOTE | 2020-03-03 16:45 | XR ---
EXAMINATION TYPE: XR shoulder limited RT DATE OF EXAM: 03/03/2020 COMPARISON: 02/03/2020 HISTORY: Surgery TECHNIQUE: Single view FINDINGS: There is a right shoulder prosthesis. Components are in anatomic position. IMPRESSION: No complicating process seen.
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
[2020-03-03] MEDS: traMADol 50 MG TAB PO SCH (21:15)
[2020-03-03 21:17] LABS: Glucose,Whole Blood 142 mg/dL (75-99)
[2020-03-04] MEDS: traMADol 50 MG TAB PO SCH ×3 (00:21→14:23)
[2020-03-04] MEDS ORDERED: LEVOTHYROXINE 50 MCG TAB PO SCH (06:30)
[2020-03-04] MEDS ORDERED: PANTOPRAZOLE 40 MG TABLET PO SCH (07:30)
[2020-03-04 07:55] LABS: Glucose,Whole Blood 120 mg/dL (75-99)
[2020-03-04] MEDS: LACTATED RINGERS 1,000 ML IV SCH (07:57)
[2020-03-04] MEDS ORDERED: ASPIRIN 325 MG TAB PO SCH (09:00)
[2020-03-04 09:44] LABS: Basophils % (A) 0 %; Eosinophils % (A) 0 %; HCT 33.4 % (34.0-46.0); HGB 10.7 gm/dL (11.4-16.0); Hypochromasia Slight; Lymphocytes # (A) 1.4 k/uL (1.0-4.8); Lymphocytes % (A) 12 %; MCH 28.7 pg (25.0-35.0); MCHC 32.1 g/dL (31.0-37.0); MCV 89.5 fL (80.0-100.0); Mean Platelet Volume 8.4; Monocytes % (A) 9 %; Neutrophils # (A) 9.4 k/uL (1.3-7.7); Neutrophils % (A) 78 %; Platelet Count 271 k/uL (150-450); RBC 3.74 m/uL (3.80-5.40); WBC 12.1 k/uL (3.8-10.6)
--- NOTE | 2020-03-04 12:28 | P.PN ---
Subjective Progress Note Date: 03/04/20 Principal diagnosis: Status post right total shoulder arthroplasty Patient evaluated today at bedside, she is resting comfortably. Pain is well- controlled. She denies any chest pain or shortness of breath. Objective - Vital Signs Vital signs: Vital Signs Temp 98.4 F 03/04/20 07:00 Pulse 84 03/04/20 07:00 Resp 16 03/04/20 07:00 BP 132/77 03/04/20 07:00 Pulse Ox 92 L 03/04/20 07:00 Intake & Output 03/03/20 03/04/20 03/04/20 18:59 06:59 18:59 Intake Total 1401 1265 240 Output Total 150 Balance 1251 1265 240 Weight 79.6 kg Intake: IV 1401 Intake, IV Titration 825 Amount Lactated Ringers 1,000 ml 725 @ 0 mls/hr IV [facility] Rx#:[id number] ceFAZolin 2 gm In Sodium 100 Chloride 0.9% 50 ml @ 100 mls/hr IVPB Q8H [facility] Rx#: [id number] Oral 440 240 Output: Estimated Blood Loss 150 Other: Voiding Method Bedside Commode Bedside Commode # Voids 2 - Exam Right upper extremity: Postoperative bandages were removed, incision is clean, dry and intact. Obvious soft tissue swelling and ecchymosis present in the arm. Sensory exam light touch is intact throughout the extremity, radial pulses 2+. - Labs CBC & Chem 7: 03/04/20 09:15 03/03/20 12:54 Labs: Abnormal Lab Results - Last 24 Hours (Table) 03/03/20 03/04/20 03/04/20 Range/Units 21:01 07:16 09:15 WBC 12.1 H (3.8-10.6) k/uL RBC 3.74 L (3.80-5.40) m/uL Hgb 10.7 L (11.4-16.0) gm/dL Hct 33.4 L (34.0-46.0) % Neutrophils # 9.4 H (1.3-7.7) k/uL POC Glucose (mg/dL) 142 H 120 H (75-99) mg/dL Assessment and Plan Assessment: Status post right total shoulder arthroplasty Plan: Pain control, plan for discharge, tramadol 50 mg GI and DVT prophylaxis, aspirin 81 mg twice a day Sling instructions were discussed along with activity restrictions Wound care instructions discussed Medical recommendations Plan for discharge home today Time with Patient: Less than 30
--- NOTE | 2020-03-04 12:31 | P.DS ---
Providers Date of admission: 03/03/20 12:15 Expected date of discharge: 03/04/20 Attending physician: Jeison Mayes Consults: 03/03/20 15:26 Consult Physician Routine Consulting Provider: Stephanie Garcia Consult Reason/Comments: Medical Management Do you want consulting provider notified?: Yes Primary care physician: Stated None Hospital Course: Date of admission: 03/03/2020 Date of discharge: 03/04/2020 Admission diagnosis: Status post right total shoulder arthroplasty Discharge diagnosis: Same Attending physician: Dr. Mayes Surgical procedures: Right total shoulder arthroplasty Brief history: Patient is a 85-year-old female with a history of progressive primary right shoulder osteoarthritis. At this point patient has failed conservative treatment measures and has opted to proceed with a elective right total shoulder arthroplasty. Hospital course: Details of patient's surgery can be found in operative report. Patient tolerated the procedure well and was subsequently transported to orthopedic floor. Patient's orthopeidc and medical care was provided daily. Patient had daily laboratory tests performed for evaluation of overall blood counts. Patient had daily physical therapy to include strengthening range of motion as well as education with walker ambulation. Patient was treated with aspirin for their postoperative DVT prophylaxis during their inpatient stay. Patient was noted to have a relatively uneventful postoperative course. Patient reported satisfactory pain control with oral pain medications by postoperative day 0. Patient showed satisfactory progress with physical therapy. Patient moved steadily through the program and had no difficulty meeting the goals by postoperative day 1. Given patient's otherwise satisfactory course and having met physical therapy goals, plan is to discharge patient home on postoperative day 1. Discharge condition/disposition: Patient will be discharged home in stable condition. Discharge medications: Instructions are given on resumption of patient's normal daily medications per primary care recommendation, in addition patient will be prescribed Tramadol 50 mg, aspirin 81 mg. Discharge instructions: 1. Wound care and infection precautions, keep incision dry and covered while showering], no lotions, creams, moisturizers. No soaking, tubs, pools, hottubs. Do not scrub over the incision. 2. Utilize arm sling, keep incision clean and dry while showering 3. Ice and elevate when necessary. Do not exceed 20 minutes per hour with ice pack. 4. Utilize compression sleeve until seen at first follow up appointment. 7. Pain meds and anticoagulants per prescription. 8. Pain medication has potential to cause constipation. Increase oral fluid and fiber intake. Contact primary care provider if you have not had a bowel movement within 48 hours after discharge 9. No anti-inflammatory medication until discussed at first post operative visit, this including Motrin, Aleve, Mobic, Diclofenac 10. Follow up in office at 2 weeks postop with Marcelino Post PA-C 11. Follow up with your primary care doctor 7-10 days after discharge. 12. Contact [facility] with any questions, . Procedures: Right total shoulder arthroplasty Patient Condition at Discharge: Good Plan - Discharge Summary Discharge Rx Participant: Yes New Discharge Prescriptions: New Aspirin [Adult Low Dose Aspirin EC] 81 mg PO BID #60 tablet. traMADol HCl [Ultram] 50 mg PO Q6H PRN #28 tab PRN Reason: Pain No Action Levothyroxine Sodium [Synthroid] 50 mcg PO DAILY Omeprazole [PriLOSEC] 20 mg PO DAILY Discharge Medication List Levothyroxine Sodium [Synthroid] 50 mcg PO DAILY 07/05/17 [History] Omeprazole [PriLOSEC] 20 mg PO DAILY 02/26/20 [History] Aspirin [Adult Low Dose Aspirin EC] 81 mg PO BID #60 tablet. 03/04/20 [Rx] traMADol HCl [Ultram] 50 mg PO Q6H PRN #28 tab 03/04/20 [Rx] Follow up Appointment(s)/Referral(s): Yakov Post PAC [PHYSICIAN [employer]] - 03/18/20 3:10 pm Activity/Diet/Wound Care/Special Instructions: Orthopedic discharge instructions: 1. Resume home medications after discharge 2. Pain medication as needed 3. Utilize arm sling 4. Daily dressing changes, keep incision dry and covered while showering 5. Plan for follow-up at [facility] in 2 weeks Discharge Disposition: HOME WITH HOME HEALTH SERVICES
--- NOTE | 2020-03-04 12:31 | P.PN ---
Subjective Progress Note Date: 03/04/20 Principal diagnosis: Medical management Patient was seen and examined. No acute events overnight. Patient reports bruising around her left shoulder. She reports resolution of her numbness. She denies any chest pain, shortness breath or palpitations. No nausea or vomiting. No fever or chills. Objective - Vital Signs Vital signs: Vital Signs Temp 98.4 F 03/04/20 07:00 Pulse 84 03/04/20 07:00 Resp 16 03/04/20 07:00 BP 132/77 03/04/20 07:00 Pulse Ox 92 L 03/04/20 07:00 Intake & Output 03/03/20 03/04/20 03/04/20 18:59 06:59 18:59 Intake Total 1401 1265 240 Output Total 150 Balance 1251 1265 240 Weight 79.6 kg Intake: IV 1401 Intake, IV Titration 825 Amount Lactated Ringers 1,000 ml 725 @ 0 mls/hr IV .[facility] Rx#:[id number] ceFAZolin 2 gm In Sodium 100 Chloride 0.9% 50 ml @ 100 mls/hr IVPB Q8H [facility] Rx#: [id number] Oral 440 240 Output: Estimated Blood Loss 150 Other: Voiding Method Bedside Commode Bedside Commode # Voids 2 - Exam General: [non toxic], [no distress], [appears at stated age] Derm: [warm], [dry] Head: [atraumatic], [normocephalic], [symmetric] Eyes: [EOMI], [no lid lag], [anicteric sclera] Mouth: [no lip lesion], [mucus membranes moist] Cardiovascular: [S1S2 reg], [no murmur], [positive posterior tibial pulse bilateral], Lungs: [CTA bilateral], [no rhonchi, no rales] , [no accessory muscle use] Abdominal: [soft], [ nontender to palpation], [no guarding], [no appreciable organomegaly] Ext: [no gross muscle atrophy], [no edema], [no contractures], right shoulder wr apped in casted with dressing clean dry and intact, with 2+ radial pulse Neuro: [ CN II-XI grossly intact], [no focal neuro deficits] Psych: [Alert], [oriented], [appropriate affect] - Labs CBC & Chem 7: 03/04/20 09:15 03/03/20 12:54 Labs: Abnormal Lab Results - Last 24 Hours (Table) 03/03/20 03/04/20 03/04/20 Range/Units 21:01 07:16 09:15 WBC 12.1 H (3.8-10.6) k/uL RBC 3.74 L (3.80-5.40) m/uL Hgb 10.7 L (11.4-16.0) gm/dL Hct 33.4 L (34.0-46.0) % Neutrophils # 9.4 H (1.3-7.7) k/uL POC Glucose (mg/dL) 142 H 120 H (75-99) mg/dL Assessment and Plan Assessment: Leukocytosis Hypothyroidism GERD Right shoulder numbness related to recent right shoulder total arthroplasty Patient has a mild leukocytosis of 12.1 which is likely reactive from surgery. There are no signs of infection. Continue Synthroid for hypothyroidism. Continue Prilosec for history of GERD. Her numbness has resolved. She is medically cleared for discharge home.
[2020-03-06 05:57] VITALS: BP 132/77; PULSE 84; RESP 16; TEMP 98.4
== END 2020-03-04 14:35 | disposition home health service (06) | DRG 483 ==
LOC: 2ORMAIN 12:15 → 4SSUR 16:12
PROVIDERS: ADMIT Orthopaedic Surgery; ATTEND Orthopaedic Surgery
PROC: 0RRJ0JZ Replacement of Right Shoulder Joint with Synthetic Substitute, Open Approach (ICD-10-PCS; principal; 2020-03-03 13:30)
DX: M19.011 Primary osteoarthritis, right shoulder (principal); K21.9 Gastro-esophageal reflux disease without esophagitis; E11.9 Type 2 diabetes mellitus without complications; E03.9 Hypothyroidism, unspecified; E78.5 Hyperlipidemia, unspecified; Z96.641 Presence of right artificial hip joint; Z96.612 Presence of left artificial shoulder joint; Z79.890 Hormone replacement therapy; Z88.0 Allergy status to penicillin; Z98.1 Arthrodesis status; Z82.49 Family history of ischemic heart disease and other diseases of the circulatory system; Z80.9 Family history of malignant neoplasm, unspecified; Z90.89 Acquired absence of other organs; Z98.890 Other specified postprocedural states; Z88.5 Allergy status to narcotic agent; Z91.040 Latex allergy status
CPT/HCPCS: 64415; 76942; 84132; 85025; 88300; 94760

== ENCOUNTER 2020-11-23 09:37 | Inpatient (IN) | payer MEDICARE, OTHER ==
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
[2020-11-23 10:34] LABS: Anisocytosis Slight; Basophils % (A) 1 %; Eosinophils % (A) 0 %; HCT 35.4 % (34.0-46.0); HGB 11.7 gm/dL (11.4-16.0); Hypochromasia Slight; Lymphocytes # (A) 1.3 k/uL (1.0-4.8); Lymphocytes % (A) 27 %; MCH 27.7 pg (25.0-35.0); MCV 84.1 fL (80.0-100.0); Mean Platelet Volume 7.9; Monocytes # (A) 0.6 k/uL (0-1.0); Monocytes % (A) 11 %; Neutrophils # (A) 2.7 k/uL (1.3-7.7); Neutrophils % (A) 56 %; Platelet Count 237 k/uL (150-450); RBC 4.21 m/uL (3.80-5.40); RDW 18.2 % (11.5-15.5); WBC 4.8 k/uL (3.8-10.6)
[2020-11-23 10:48] LABS: Partial Thromboplastin Time 23.7 sec (22.0-30.0); Prothrombin Time 10.5 sec (9.0-12.0)
[2020-11-23 10:53] LABS: Albumin 3.3 g/dL (3.5-5.0); Calcium 8.9 mg/dL (8.4-10.2); Total Bilirubin 0.5 mg/dL (0.2-1.3); Total Protein 5.7 g/dL (6.3-8.2)
--- NOTE | 2020-11-23 11:17 | CT ---
EXAMINATION TYPE: CT brain luis yoo DATE OF EXAM: 11/23/2020 COMPARISON: None HISTORY: Fall; syncope; head injury Unenhanced CT of the brain was performed. The ventricles, basal cisterns and sulci overlying the cerebral convexities demonstrate moderate enla rgement. There is no evidence for intracranial hemorrhage or sulcal effacement. There is decreased attenuatio n about the periventricular white matter and deep white matter of both cerebral hemispheres, compatib le with chronic small vessel ischemia. No mass effects are seen. If symptoms persist consider MRI. Osseous calvarium is intact. IMPRESSION: 1. Age related atrophic and chronic small vessel ischemic change without acute intracranial process seen at this time. CT Cervical Spine: Unenhanced CT of the cervical spine was performed with bone and soft tissue window settings submitted . Coronal and sagittal reconstruction is obtained. There is normal alignment and prevertebral soft tissues. No evidence for acute cervical fracture . Scattered degenerative disc disease and spondylosis. Biapical scarring. IMPRESSION: 1. No evidence for acute fracture or subluxation of the cervical spine.
[2020-11-23 12:12] LABS: Appearance,Urine Clear (Clear); Bilirubin,Urine Negative (Negative); Blood,Urine Negative (Negative); Color,Urine Yellow; Glucose,Urine (UA) Negative (Negative); Hyaline Casts,Urine 3 /lpf (0-2); Ketones,Urine Negative (Negative); Leukocyte Esterase,Urine Small (Negative); Mucus,Urine Few /hpf; Nitrite,Urine Negative (Negative); PH, Urine 5.5 (5.0-8.0); Protein,Urine Trace (Negative); RBC,Urine 4 /hpf (0-5); Specific Gravity,Urine 1.024 (1.001-1.035); Squamous Epithelial Cell,Urine 1 /hpf (0-4); Urobilinogen,Urine <2.0 mg/dL (<2.0); WBC,Urine 7 /hpf (0-5)
[2020-11-23] MEDS ORDERED: NALOXONE 0.4 MG/ML 1 ML VIAL IV PRN (12:42)
[2020-11-23] MEDS: ZINC SULFATE 220 MG CAP PO SCH (21:40)
[2020-11-23] MEDS: ASPIRIN 81 MG PO SCH (21:40)
[2020-11-23] MEDS: ATORVASTATIN 40 MG TAB PO SCH (21:40)
[2020-11-23] MEDS: METOPROLOL TARTRATE 50 MG TAB PO SCH (21:40)
[2020-11-23] MEDS: ASCORBIC ACID 500 MG TAB PO SCH (21:40)
[2020-11-24] MEDS: LEVOTHYROXINE 50 MCG TAB PO SCH (05:55)
[2020-11-24] MEDS: ZINC SULFATE 220 MG CAP PO SCH (08:24)
[2020-11-24] MEDS: DONEPEZIL 10 MG TAB PO SCH (08:24)
[2020-11-24] MEDS: ASCORBIC ACID 500 MG TAB PO SCH ×2 (08:24→20:18)
[2020-11-24] MEDS: ASPIRIN 81 MG PO SCH ×2 (08:24→20:18)
[2020-11-24] MEDS: PANTOPRAZOLE 40 MG TABLET PO SCH (08:24)
[2020-11-24] MEDS: METOPROLOL TARTRATE 50 MG TAB PO SCH ×2 (08:24→20:18)
[2020-11-24] MEDS: CHOLECALCIFEROL 25 MCG (1000 IU) TABLET PO SCH (08:24)
[2020-11-24] MEDS: DOCUSATE 100 MG CAP PO SCH (08:24)
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
--- NOTE | 2020-11-24 12:31 | ECHOF ---
Referral Reason:syncope MEASUREMENTS -------- HEIGHT: 182.9 cm WEIGHT: 83.9 kg BP: RVIDd: 2.8 cm (< 3.3) IVSd: 1.2 cm (0.6 - 1.1) LVIDd: 3.6 cm (3.9 - 5.3) LVPWd: 1.1 cm (0.6 - 1.1) IVSs: 1.3 cm LVIDs: 2.8 cm LVPWs: 1.2 cm LA Diam: 3.3 cm (2.7 - 3.8) Ao Diam: 3.3 cm (2.0 - 3.7) AV Cusp: 2.1 cm (1.5 - 2.6) MV E Jose: 0.46 m/s MV DecT: 250 ms MV A Jose: 0.54 m/s MV E/A Ratio: 0.86 RAP: 5.00 mmHg RVSP: 31.77 mmHg FINDINGS -------- Sinus rhythm. Pt is postivie for Covid. The left ventricular size is normal. There is mild concentric left ventricular hypertrophy. Overa ll left ventricular systolic function is normal with, an EF between 55 - 60 %. The right ventricle is normal in size. The left atrial size is normal. The right atrial size is normal. 5.0mg OF Lumason UTLIZED: 2 OR MORE WALL SEGMENTS NOT VISUALIZED. There is mild aortic valve sclerosis. There is no evidence of aortic regurgitation. Mild mitral regurgitation is present. The tricuspid valve appears structurally normal. No regurgitation noted The pulmonic valve was not well visualized. The aortic root size is normal. There is no pericardial effusion. CONCLUSIONS -------- 1. Pt is postivie for Covid. 2. The left ventricular size is normal. 3. There is mild concentric left ventricular hypertrophy. 4. Overall left ventricular systolic function is normal with, an EF between 55 - 60 %. 5. The right ventricle is normal in size. 6. The left atrial size is normal. 7. The right atrial size is normal. 8. 5.0mg OF Lumason UTLIZED: 2 OR MORE WALL SEGMENTS NOT VISUALIZED. 9. There is mild aortic valve sclerosis. 10. Mild mitral regurgitation is present. 11. The tricuspid valve appears structurally normal. 12. The pulmonic valve was not well visualized. 13. The aortic root size is normal. 14. There is no pericardial effusion. MICROBIOLOGICAL LABORATORY TECHNICIAN: Candis Cline RDCS
[2020-11-24] MEDS: ATORVASTATIN 40 MG TAB PO SCH (20:18)
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
[2020-11-25] MEDS: LEVOTHYROXINE 50 MCG TAB PO SCH (05:29)
[2020-11-25 09:42] LABS: African American GFR (CKD) 68.1 (60.0-200.0); BUN/Creat Ratio 17.78 Ratio (12.00-20.00); Calcium 8.4 mg/dL (8.7-10.3); Non-African American GFR(CKD) 58.7 (60.0-200.0); Potassium 4.6 mmol/L (3.5-5.5)
[2020-11-25] MEDS: PANTOPRAZOLE 40 MG TABLET PO SCH (10:13)
[2020-11-25] MEDS: CHOLECALCIFEROL 25 MCG (1000 IU) TABLET PO SCH (10:13)
[2020-11-25] MEDS: ASPIRIN 81 MG PO SCH ×2 (10:13→20:30)
[2020-11-25] MEDS: ZINC SULFATE 220 MG CAP PO SCH (10:13)
[2020-11-25] MEDS: ASCORBIC ACID 500 MG TAB PO SCH ×2 (10:14→20:30)
[2020-11-25] MEDS: METOPROLOL TARTRATE 50 MG TAB PO SCH (10:14)
[2020-11-25] MEDS: DONEPEZIL 10 MG TAB PO SCH (10:14)
[2020-11-25] MEDS: DOCUSATE 100 MG CAP PO SCH (10:14)
--- NOTE | 2020-11-25 12:52 | P.PN ---
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 We have been asked to see in consultation for syncope. Patient was recently discharged from rehab and presents to the emergency department for evaluation of multiple falls in the last couple days. Yesterday she became dizzy and fell is unable to safely care for at home. Patient denies any chest pain, shortness of breath, nausea, vomiting, abdominal pain, palpitations, lightheadedness. Denies history of abnormal heart rhythm, diabetes, [place] or stroke. Denies tobacco or alcohol use. Laboratory data reviewed COVID-19 positive, troponins negative 3, sodium 136, potassium 4.0, creatinine 0.85, BUNs 15, liver enzymes within normal limits. Vital signs blood pressure 129/76, heart rate 64, maintaining oxygen saturation on room air, afebrile. EKG reveals sinus bradycardia HR 59 with TWI in lead III, no significant ST-T wave abnormalities. No prior EKGs to compare Telemetry tracings indicate sinus rhythm CT head/cervical spine- age-related atrophic and chronic small vessel ischemic change. No acute intracranial process seen. No acute fracture or sublaxation of the cervical spine Current cardiac medications include aspirin 81 mg, metoprolol titrate 50 mg twice a day, atorvastatin 40 mg daily. 11/25/20: Patient seen an examined at bedside, resting comfortably, no acute distress. BP 137/81 HR 80, afebrile, maintaining oxygen saturations on room air. Echocardiogram reveals left ventricular systolic function is normal with EF between 5560 percent, mild MR. Telemetry tracings reveal normal sinus rhythm, no irregular rhythms noted. REVIEW OF SYSTEMS At the time of my exam: CONSTITUTIONAL: Denies fever or chills. CARDIOVASCULAR: Denies chest pain, shortness of breath, orthopnea, PND or pa lpitations. RESPIRATORY: Denies cough. GASTROINTESTINAL: Denies abdominal pain, diarrhea, constipation, nausea or vomiting. MUSCULOSKELETAL: Denies myalgias. NEUROLOGIC: Denies numbness, tingling, headacbe or weakness. ENDOCRINE: Denies fatigue, weight change, polydipsia or polyurina. GENITOURINARY: Denies burning, hematuria or urgency with micturation. HEMATOLOGIC: Denies history of anemia or bleeding. PHYSICAL EXAMINATION Thorough physical examination not complete due to COVID-19 infection ASSESSMENT Syncope- unclear etiology COVID-19 infection History CVA Hyperlipidemia PLAN -2D echo with normal LV systolic function, no acute abnormalities. -Will change metoprolol tartrate to 50mg in the morning, and metoprolol tartrate 25mg nightly. -Continue aspirin and atrovastatin. -Will will sign off at this time, please reach out for any other questions or concerns. -Patient can follow up in the office with Dr. Oconnor outpatient. Nurse Practitioner note has been reviewed, I agree with a documented findings and plan of care. Patient was seen and examined. Objective - Vital Signs Vital signs: Vital Signs Temp 98.1 F 11/25/20 07:00 Pulse 80 11/25/20 07:00 Resp 18 11/25/20 07:00 BP 137/81 11/25/20 07:00 Pulse Ox 94 L 11/25/20 07:00 Intake & Output 11/24/20 11/25/20 11/25/20 18:59 06:59 18:59 Other: Voiding Method Bedside Commode Bedside Commode # Voids 1 1 1 # Bowel Movements 1 - Labs CBC & Chem 7: 11/23/20 10:23 11/25/20 05:14 Labs: Abnormal Lab Results - Last 24 Hours (Table) 11/25/20 Range/Units 05:14 Est GFR (CKD-EPI)NonAf 58.7 L (60.0-200.0) Glucose 130 H (70-110) mg/dL Calcium 8.4 L (8.7-10.3) mg/dL
--- NOTE | 2020-11-25 16:48 | P.PN ---
Subjective Progress Note Date: 11/25/20 Radha Morales is an 85 yo F with PMH of CVA, hypothyroidism who presented to the ED complaining of weakness and dizziness over the past few days. She notes she was recently discharged from rehab and since then has been at home. She complains of episodes where she will become dizzy and then collapse, unsure if she passed out. She denies any fever or shortness of breath, endorses cough. On presentation vitals stable, labs with sodium 136, COVID positive. CT head/cervical spine with chronic changes. 11/25/2020-containing O2 sats of 92% on room air, nonproductive cough. Reports tolerated ambulation with PT yesterday well with no lightheadedness dizziness or focal deficits. Evaluated by cardiology and patient is scheduled for echocardiogram this morning. VSS,Telemetry sinus rhythm. Denies chest pain, palpitations. Objective - Vital Signs Vital signs: Vital Signs Temp 98.1 F 11/25/20 07:00 Pulse 80 11/25/20 07:00 Resp 18 11/25/20 07:00 BP 137/81 11/25/20 07:00 Pulse Ox 94 L 11/25/20 07:00 Intake & Output 11/24/20 11/25/20 11/25/20 18:59 06:59 18:59 Intake Total 100 Balance 100 Intake: Oral 100 Other: Voiding Method Bedside Commode Bedside Commode # Voids 1 1 1 # Bowel Movements 1 - Exam General: well nourished, well developed, NAD. Vitals reviewed Eyes: PERRL, EOMI, conjunctiva normal HENT: normocephalic, mucus membranes moist Neck: supple, no JVD Lungs: normal respiratory effort, no wheezes or rales CV: Regular rate and rhythm, no murmur. Peripheral pulses 2+ Abdomen: soft, nondistended, no organomegaly, positive bowel sounds Skin: warm and dry. Neuro: A&Ox3, normal mood and affect - Labs CBC & Chem 7: 11/23/20 10:23 11/25/20 05:14 Labs: Abnormal Lab Results - Last 24 Hours (Table) 11/25/20 Range/Units 05:14 Est GFR (CKD-EPI)NonAf 58.7 L (60.0-200.0) Glucose 130 H (70-110) mg/dL Calcium 8.4 L (8.7-10.3) mg/dL Assessment and Plan Assessment: (1) Syncope and collapse secondary to Covid infection Current Visit: Yes Status: Acute Code(s): R55 - SYNCOPE AND COLLAPSE SNOMED Code(s): 588400331 (2) COVID-19 Current Visit: Yes Status: Acute Code(s): U07.1 - COVID-19 SNOMED Code(s): 276323061 (3) Hypothyroid Current Visit: Yes Status: Acute Code(s): E03.9 - HYPOTHYROIDISM, UNSPECIFIED SNOMED Code(s): 99556469 (4) history of CVA Plan: Continue on current medication regime ,monitoring and symptomatic treatment. Dexamethasone IV push added to Covid regimen. Tolerated PT well, continue with daily PT. Echo pending. The impression and plan of care has been dictated as directed. : I performed a history and examination of this patient, discussed the same with the dictator. I agree with the dictator's note ,documented as a scribe. Any additional findings or plans will be noted.
[2020-11-25 17:20] LABS: Glucose,Whole Blood 117 mg/dL (75-99)
[2020-11-25] MEDS: DEXAMETHASONE SOD PHOSPHATE 10 MG/ML 1 ML VIAL IV SCH (17:48)
[2020-11-25] MEDS ORDERED: METOPROLOL TARTRATE 25 MG TAB PO SCH (18:00)
[2020-11-25] MEDS: INSULIN ASPART (NovoLOG) 100 UNIT/ML VIAL SQ SCH ×2 (18:13→20:53)
[2020-11-25] MEDS: ATORVASTATIN 40 MG TAB PO SCH (20:30)
[2020-11-25 20:41] LABS: Glucose,Whole Blood 144 mg/dL (75-99)
[2020-11-26] MEDS: LEVOTHYROXINE 50 MCG TAB PO SCH (05:55)
[2020-11-26 07:25] LABS: Glucose,Whole Blood 156 mg/dL (75-99)
[2020-11-26] MEDS ORDERED: METOPROLOL TARTRATE 50 MG TAB PO SCH (09:00)
[2020-11-26] MEDS: INSULIN ASPART (NovoLOG) 100 UNIT/ML VIAL SQ SCH (09:20)
[2020-11-26] MEDS: CHOLECALCIFEROL 25 MCG (1000 IU) TABLET PO SCH (09:24)
[2020-11-26] MEDS: ZINC SULFATE 220 MG CAP PO SCH (09:24)
[2020-11-26] MEDS: PANTOPRAZOLE 40 MG TABLET PO SCH (09:24)
[2020-11-26] MEDS: ASCORBIC ACID 500 MG TAB PO SCH (09:24)
[2020-11-26] MEDS: ASPIRIN 81 MG PO SCH (09:24)
[2020-11-26] MEDS: DEXAMETHASONE SOD PHOSPHATE 10 MG/ML 1 ML VIAL IV SCH (09:24)
[2020-11-26] MEDS: DONEPEZIL 10 MG TAB PO SCH (09:24)
[2020-11-26] MEDS: DOCUSATE 100 MG CAP PO SCH (09:24)
--- NOTE | 2020-11-26 09:26 | P.DS ---
Providers Date of admission: 11/25/20 14:55 Expected date of discharge: 11/26/20 Attending physician: Faizan Reyes MD Consults: 11/23/20 12:42 Consult Physician Routine Consulting Provider: [facility] Consult Reason/Comments: Syncope Do you want consulting provider notified?: Yes Primary care physician: Marisol Reyes [facility] Course: Final Diagnoses: (1) Syncope and collapse secondary to Covid infection Current Visit: Yes Status: Acute Code(s): R55 - SYNCOPE AND COLLAPSE SNOMED Code(s): 547622706 (2) COVID-19 Current Visit: Yes Status: Acute Code(s): U07.1 - COVID-19 SNOMED Code(s): 774429477 (3) Hypothyroid Current Visit: Yes Status: Acute Code(s): E03.9 - HYPOTHYROIDISM, UNSPECIFIED SNOMED Code(s): 57982875 (4) history of CVA Hospital course:Radha Morales is an 85 yo F with PMH of CVA, hypothyroidism who presented to the ED complaining of weakness and dizziness over the past few days. She notes she was recently discharged from rehab and since then has been at home. She complains of episodes where she will become dizzy and then collapse, unsure if she passed out. She denies any fever or shortness of breath, endorses cough. On presentation vitals stable, labs with so dium 136, COVID positive. CT head/cervical spine with chronic changes. 11/25/2020-containing O2 sats of 92% on room air, nonproductive cough. Reports tolerated ambulation with PT yesterday well with no lightheadedness dizziness or focal deficits. Evaluated by cardiology and patient is scheduled for echocardiogram this morning. VSS,Telemetry sinus rhythm. Denies chest pain, palpitations. Significant clinical improvement. Maintained on Covid regimen , including vitamin supplements.Reports improvement with cough with the addition of Decadron. Evaluated by cardiology, 2-D echo reported normal LV function. Metoprolol tartrate further adjusted to 50 mg in the morning and 25 mg at night. Cleared by cardiology for discharge. Patient will be discharged to [facility] subacute rehab today in a stable condition with guarded prognosis. The impression and plan of care has been dictated as directed. : I performed a history and examination of this patient, discussed the same with the dictator. I agree with the dictator's note ,documented as a scribe. Any additional findings or plans will be noted. Patient Condition at Discharge: Stable Plan - Discharge Summary New Discharge Prescriptions: New Metoprolol Tartrate [Lopressor] 50 mg PO DAILY tab Metoprolol Tartrate [Lopressor] 25 mg PO Q24H 30 Days #30 tab Ascorbic Acid [Vitamin C] 500 mg PO BID tab Cholecalciferol [Vitamin D3 (25 Mcg = 1000 Iu)] 25 mcg PO DAILY tablet dexAMETHasone [Hexadrol] See Taper PO DAILY #18 tab INSULIN LISPRO (HumaLOG) [humaLOG] 0 unit SQ ACHS #1 vial Zinc Sulfate [Orazinc] 220 mg PO DAILY cap Continue Levothyroxine Sodium [Synthroid] 50 mcg PO DAILY Omeprazole [PriLOSEC] 20 mg PO DAILY Aspirin [Adult Low Dose Aspirin EC] 81 mg PO BID #60 tablet. Ferrous Sulfate [Iron (65 MG Elemental)] 325 mg PO DAILY Atorvastatin [Lipitor] 40 mg PO DAILY Docusate [Colace] 100 mg PO DAILY Donepezil [Aricept] 10 mg PO DAILY Discontinued Metoprolol Tartrate [Lopressor] 50 mg PO BID Discharge Medication List Levothyroxine Sodium [Synthroid] 50 mcg PO DAILY 07/05/17 [History] Omeprazole [PriLOSEC] 20 mg PO DAILY 02/26/20 [History] Aspirin [Adult Low Dose Aspirin EC] 81 mg PO BID #60 tablet. 03/04/20 [Rx] Atorvastatin [Lipitor] 40 mg PO DAILY 11/23/20 [History] Docusate [Colace] 100 mg PO DAILY 11/23/20 [History] Donepezil [Aricept] 10 mg PO DAILY 11/23/20 [History] Ferrous Sulfate [Iron (65 MG Elemental)] 325 mg PO DAILY 11/23/20 [History] Metoprolol Tartrate [Lopressor] 25 mg PO Q24H 30 Days #30 tab 11/25/20 [Rx] Metoprolol Tartrate [Lopressor] 50 mg PO DAILY tab 11/25/20 [Rx] Ascorbic Acid [Vitamin C] 500 mg PO BID tab 11/26/20 [Rx] Cholecalciferol [Vitamin D3 (25 Mcg = 1000 Iu)] 25 mcg PO DAILY tablet 11/26/20 [Rx] INSULIN LISPRO (HumaLOG) [humaLOG] 0 unit SQ ACHS #1 vial 11/26/20 [Rx] Zinc Sulfate [Orazinc] 220 mg PO DAILY cap 11/26/20 [Rx] dexAMETHasone [Hexadrol] See Taper PO DAILY #18 tab 11/26/20 [Rx] Follow up Appointment(s)/Referral(s): Erendira Oconnor MD [STAFF PHYSICIAN] - 3 Weeks Marisol Reyes DO [Primary Care Provider] - 1 Week (after dc from subacute rehab.) Activity/Diet/Wound Care/Special Instructions: CAROL Mariscal in 3 Days Discharge Disposition: TRANSFER TO SNF/ECF
[2020-11-26 10:02] VITALS: BP 118/79; PULSE 70; RESP 18; TEMP 97
[2020-11-26 12:00] LABS: African American GFR (CKD) 78.5 (60.0-200.0); Anion Gap 11.2 mmol/L (4.00-12.00); BUN/Creat Ratio 18.75 Ratio (12.00-20.00); Calcium 9.3 mg/dL (8.7-10.3); Carbon Dioxide 23.8 mmol/L (21.6-31.8); Non-African American GFR(CKD) 67.7 (60.0-200.0); Potassium 5.2 mmol/L (3.5-5.5)
[2020-11-26 12:15] LABS: Glucose,Whole Blood 150 mg/dL (75-99)
== END 2020-11-26 13:17 | DRG 179 ==
LOC: EC 09:37 → 1SOBS 12:44 → 6NMEDSUR 15:58 → OBSVTOIN 11-25 14:55
PROVIDERS: ADMIT Family Medicine; ATTEND Family Medicine
DX: U07.1 COVID-19 (principal); R29.6 Repeated falls; I69.334 Monoplegia of upper limb following cerebral infarction affecting left non-dominant side; Z79.890 Hormone replacement therapy; Z79.82 Long term (current) use of aspirin; M19.90 Unspecified osteoarthritis, unspecified site; E78.5 Hyperlipidemia, unspecified; R55 Syncope and collapse; E03.9 Hypothyroidism, unspecified; Z96.612 Presence of left artificial shoulder joint; Z96.641 Presence of right artificial hip joint
CPT/HCPCS: 36415; 70450; 72125; 80048; 80053; 81001; 83605; 84443; 84484; 85025; 85610; 85730; 87635; 93005; 93306; 99285

== ENCOUNTER 2024-12-06 14:37 | Observation (INO) | payer MEDICARE, OTHER ==
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
[2024-12-06 15:50] LABS: Basophils # (A) 0.05 10*3/uL (0.00-0.10); Basophils % (A) 0.2 %; Lymphocytes # (A) 0.62 10*3/uL (0.90-5.00); Lymphocytes % (A) 2.7 %; MCHC 33.3 g/dL (32.0-37.0); MCV 96.1 fL (80.0-97.0); Mean Platelet Volume 10.5 fL (9.5-12.2); Monocytes # (A) 1.29 10*3/uL (0.20-1.00); Monocytes % (A) 5.7 %; Neutrophils # (A) 20.53 10*3/uL (1.80-7.70); Neutrophils % (A) 90.8 %; Platelet Count 226 10*3/uL (140-440); RBC 4.37 10*6/uL (4.10-5.20); RDW 13.4 % (11.5-14.5); WBC 22.62 10*3/uL (4.50-10.00)
[2024-12-06 16:07] LABS: ALT 20 U/L (4-34); AST 25 U/L (14-36); African American GFR (CKD) >90 (>60 ml/min/1.73 sqM); Albumin 3.6 g/dL (3.5-5.0); Alkaline Phosphatase 97 U/L (38-126); Amylase 50 U/L (30-110); Anion Gap 9 mmol/L; Blood Urea Nitrogen 21 mg/dL (7-17); Calcium 8.8 mg/dL (8.4-10.2); Carbon Dioxide 22 mmol/L (22-30); Chloride 107 mmol/L (98-107); Glucose 134 mg/dL (74-99); Lipase 197 U/L (23-300); Non-African American GFR(CKD) 78 (>60 ml/min/1.73 sqM); Potassium 4.4 mmol/L (3.5-5.1); Sodium 138 mmol/L (137-145); Total Bilirubin 1.5 mg/dL (0.2-1.3); Total Protein 5.9 g/dL (6.3-8.2)
[2024-12-06 16:30] LABS: Appearance,Urine Cloudy (Clear); Bilirubin,Urine Negative (Negative); Blood,Urine Trace (Negative); Color,Urine Light Yellow; Glucose,Urine (UA) Negative (Negative); Ketones,Urine Negative (Negative); Leukocyte Esterase,Urine Negative (Negative); Mucus,Urine Rare /hpf; Nitrite,Urine Negative (Negative); Protein,Urine Trace (Negative); RBC,Urine 7 /hpf (0-5); Specific Gravity,Urine 1.011 (1.001-1.035); Squamous Epithelial Cell,Urine 2 /hpf (0-4); Urobilinogen,Urine <2.0 mg/dL (<2.0); WBC,Urine 4 /hpf (0-5)
[2024-12-06] MEDS: VANCOMYCIN 125 MG CAPSULE PO SCH (16:52)
[2024-12-06] MEDS: SODIUM CHLORIDE 0.9% 1,000 ML IV ONE (16:54)
--- NOTE | 2024-12-06 17:21 | CT ---
EXAMINATION TYPE: CT brain wo con DATE OF EXAM: 12/06/2024 5:14 PM COMPARISON: 11/23/2020 CLINICAL INDICATION: Female, 89 years old with history of AMS, AMS. TECHNIQUE: CT of the brain is performed utilizing 3 mm thick sections through the posterior fossa and 3 mm thick sections through the remaining calvarium. Study is performed within 24 hours of arrival to the hospital. Contrast used: mL of , (none if empty) CT DLP: 1507.4 mGycm, Automated exposure control for dose reduction was used. FINDINGS: No abnormal hyperdensity is present to suggest an acute intracranial hemorrhage. No mass lesion is evident. Calcifications are midline and left centrum semiovale present previously No acute infarcts are evident. There is an old cortical infarct right basal ganglion mild periventric ular white matter hypodensity is present, likely on the basis of chronic white matter ischemic change s Ventricles and sulci are appropriate for the patient age. Paranasal sinuses and mastoid air cells within the [id number] are clear. IMPRESSION: 1. No acute intracranial process. Follow up MRI can be performed as clinically indicated. 2. Atrophy with chronic appearing periventricular white matter ischemic changes. 3. Old right basal ganglion lacunar infarct [facility], , 12/06/2024 5:19 PM
[2024-12-06 17:32] LABS: Influenza A Not Detected (Not Detectd); Influenza B Not Detected (Not Detectd); RSV Not Detected (Not Detectd)
[2024-12-06] MEDS ORDERED: VANCOMYCIN 125 MG CAPSULE PO SCH (18:00)
[2024-12-06] MEDS: SODIUM CHLORIDE 0.9% 1,000 ML IV STA (18:44)
--- NOTE | 2024-12-06 19:47 | XR ---
EXAMINATION TYPE: XR chest 2V DATE OF EXAM: 12/06/2024 7:09 PM COMPARISON: None. CLINICAL INDICATION: Female, 89 years old with history of syncope, TECHNIQUE: XR chest 2V view(s) obtained. FINDINGS: The heart size is normal. The pulmonary vasculature is normal. The lungs are clear. There is elevation of the left diaphragm. Some compressive atelectasis may be a djacent to the left diaphragm. IMPRESSION: 1. No acute pulmonary process. 2. Elevation of the left diaphragm [facility], , 12/06/2024 7:45 PM
[2024-12-06] MEDS ORDERED: NALOXONE 0.4 MG/ML 1 ML VIAL IV PRN (20:01)
[2024-12-06] MEDS ORDERED: ACETAMINOPHEN TAB 325 MG TAB PO PRN (20:01)
[2024-12-07 11:01] VITALS: BMI 27.4
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
[2024-12-08 08:00] LABS: African American GFR (CKD) >90 (>60 ml/min/1.73 sqM); Anion Gap 4 mmol/L; Blood Urea Nitrogen 19 mg/dL (7-17); Calcium 8.6 mg/dL (8.4-10.2); Carbon Dioxide 24 mmol/L (22-30); Chloride 107 mmol/L (98-107); Glucose 101 mg/dL (74-99); Non-African American GFR(CKD) 80 (>60 ml/min/1.73 sqM); Potassium 3.8 mmol/L (3.5-5.1); Sodium 135 mmol/L (137-145)
[2024-12-08 08:01] LABS: Basophils # (A) 0.06 10*3/uL (0.00-0.10); Basophils % (A) 0.4 %; Eosinophils # (A) 0.21 10*3/uL (0.04-0.35); Eosinophils % (A) 1.5 %; HCT 33.7 % (37.2-46.3); Lymphocytes # (A) 2.08 10*3/uL (0.90-5.00); Lymphocytes % (A) 14.6 %; MCHC 32.6 g/dL (32.0-37.0); Mean Platelet Volume 10.7 fL (9.5-12.2); Monocytes # (A) 1.05 10*3/uL (0.20-1.00); Monocytes % (A) 7.4 %; Neutrophils # (A) 10.81 10*3/uL (1.80-7.70); Neutrophils % (A) 75.6 %; Platelet Count 197 10*3/uL (140-440); RBC 3.44 10*6/uL (4.10-5.20); RDW 14.1 % (11.5-14.5); WBC 14.28 10*3/uL (4.50-10.00)
[2024-12-08] MEDS: DONEPEZIL 10 MG TAB PO SCH (08:38)
[2024-12-08] MEDS: METOPROLOL TARTRATE 50 MG TAB PO SCH (08:38)
[2024-12-08] MEDS: ASPIRIN 81 MG PO SCH (08:38)
[2024-12-08] MEDS: LEVOTHYROXINE 50 MCG TAB PO SCH (08:38)
--- NOTE | 2024-12-08 16:52 | P.PN ---
Subjective Progress Note Date: 12/08/24 89-year-old female presenting to the ER via EMS from [facility] for evaluation of diarrhea. History is limited given patient's altered mentation. Patient is ANO x 1 at baseline, per nursing staff at [facility]. Per nurse at [facility], patient was found unresponsive and quickly became responsive once staff entered her room. Patient was clammy and sweaty. Staff noted green liquid stool as well. They deny recent antibiotic use. Patient was then sent to the emergency department for further evaluation and treatment. Blood work completed in ED reveals a WBC of 22.6, hemoglobin of 14 and platelet count of 226, sodium 138, potassium 4.4, BUN/creatinine of 21/0.69, lactic acid 2.4 trending down to 1.8 after fluid bolus, total bilirubin elevated 1.5, rest of liver enzymes are within normal limit UA is unremarkable Viral drug screen is negative - Given report of green stools from the senior care, stool culture and C. difficile are ordered and patient send placed on oral vancomycin CT brain negative for acute intracranial process. Chronic changes noted. -CXR showing no focal consolidations. Objective - Vital Signs Vital signs: Vital Signs Temp 97.5 F L 12/08/24 08:00 Pulse 61 12/08/24 08:00 Resp 16 12/08/24 08:00 BP 125/73 12/08/24 08:00 Pulse Ox 97 12/08/24 08:00 FiO2 Intake & Output 12/07/24 12/08/24 12/08/24 18:59 06:59 18:59 Weight 74.843 kg Other: Voiding Method Diaper Diaper Diaper # Voids 1 1 # Bowel Movements 1 - Exam General appearance: alert, in no apparent distress Respiratory exam: Present: normal lung sounds bilaterally. Absent: respiratory distress, wheezes, rales, rhonchi, stridor Cardiovascular Exam: Present: regular rate, normal rhythm, normal heart sounds. Absent: systolic murmur, diastolic murmur, rubs, gallop, clicks GI/Abdominal exam: Present: soft, normal bowel sounds. Absent: distended, tenderness, guarding, rebound, rigid Neurological exam: Present: alert, altered (Ax O x1 (baseline)) Skin exam: Present: warm, dry, intact, normal color. Absent: rash - Labs CBC & Chem 7: 12/08/24 06:48 12/08/24 06:48 Labs: Abnormal Lab Results - Last 24 Hours (Table) 12/08/24 12/08/24 Range/Units 06:48 06:48 WBC 14.28 H (4.50-10.00) 10*3/uL RBC 3.44 L (4.10-5.20) 10*6/uL Hgb 11.0 L D (12.0-15.0) g/dL Hct 33.7 L (37.2-46.3) % MCV 98.0 H (80.0-97.0) fL Immature Gran # 0.07 H (0.00-0.04) 10*3/uL Neutrophils # 10.81 H (1.80-7.70) 10*3/uL Monocytes # 1.05 H (0.20-1.00) 10*3/uL Sodium 135 L (137-145) mmol/L BUN 19 H (7-17) mg/dL Glucose 101 H (74-99) mg/dL Microbiology - Last 24 Hours (Table) 12/06/24 16:20 Blood Culture - Preliminary Blood Assessment and Plan Assessment: 1. Leukocytosis/sepsis -Possible C. difficile colitis - Patient has been placed on oral vancomycin; stool has been sent for culture and sensitivity and C. difficile toxin - We will monitor CBC, CRP and procalcitonin; consult ID 2. Intractable nausea/vomiting/diarrhea; C. difficile colitis versus acute viral syndrome - Will continue with supportive care 3. Lactic acidosis; related to dehydration versus infection; patient received 1 L IV fluid in ED; lactic acid is trending down 4. Hypothyroidism; levothyroxine 50 mcg daily 5. Hypertension; continue home dose of metoprolol 6. Hyperlipidemia; Lipitor 40 mg p.o. nightly 7. Dementia; Aricept 10 mg to
[2024-12-08] MEDS: METOPROLOL TARTRATE 25 MG TAB PO SCH (17:42)
[2024-12-08] MEDS: ATORVASTATIN 40 MG TAB PO SCH (20:28)
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
[2024-12-09 08:33] LABS: Basophils # (A) 0.06 X 10*3/uL (0.00-0.10); Basophils % (A) 0.6 %; Eosinophils % (A) 1.9 %; HCT 37.7 % (37.2-46.3); HGB 11.8 g/dL (12.0-15.0); Lymphocytes % (A) 20.1 %; MCH 31.1 pg (27.0-32.0); MCHC 31.3 g/dL (32.0-37.0); MCV 99.2 FL (80.0-97.0); Mean Platelet Volume 11.2 FL (9.5-12.2); Monocytes # (A) 0.89 X 10*3/uL (0.20-1.00); Monocytes % (A) 8.5 %; NRBC Per 100 WBC 0 X 10*3/uL (0.00-0.01); Neutrophils # (A) 7.16 X 10*3/uL (1.80-7.70); Neutrophils % (A) 68.5 %; Platelet Count 207 X 10*3/uL (140-440); RDW 13.7 % (11.5-14.5); WBC 10.45 X 10*3/uL (4.50-10.00)
[2024-12-09 08:48] LABS: BUN/Creat Ratio 22.86 Ratio (12.00-20.00); Glucose 103 mg/dL (70-110)
[2024-12-09 08:49] LABS: Calcium 8.7 mg/dL (8.7-10.3); Carbon Dioxide 21.6 mmol/L (21.6-31.8); Chloride 108 mmol/L (96-109); Potassium 3.6 mmol/L (3.5-5.5); Sodium 141 mmol/L (135-145)
--- NOTE | 2024-12-09 21:32 | P.PN ---
Subjective Progress Note Date: 12/09/24 Principal diagnosis: Reason for follow-up is leukocytosis and diarrhea Patient is a 89-year-old female with a past medical history significant for GERD/Reflux, Hyperlipidemia, Osteoarthritis (OA), Thyroid Disorder and longterm resident patient was sent to the hospital for evaluation of diarrhea and mental status changes patient did have elevated white count. On today's evaluation that is 12/09/2024, patient has been afebrile, patient is breathing comfortably and is currently on room air, patient denies having any chest pain and cough, patient denies nausea vomiting or abdominal pain no diarrhea has been reported. Patient white count is down to 10.45 creatinine 0.7 repeat UA not obtained stool studies not obtained Objective - Vital Signs Vital signs: Vital Signs Temp 98.0 F 12/09/24 11:46 Pulse 76 12/09/24 11:46 Resp 16 12/09/24 11:46 BP 158/86 12/09/24 11:46 Pulse Ox 99 12/09/24 11:46 FiO2 Intake & Output 12/08/24 12/09/24 12/09/24 18:59 06:59 18:59 Output Total 2 Balance -2 Output: Urine 2 Other: Voiding Method Diaper Diaper Diaper External Catheter # Voids 1 - Exam GENERAL DESCRIPTION: An elderly male up in the chair in no distress RESPIRATORY SYSTEM: Unlabored breathing , decreased breath sounds at bases HEART: S1 S2 regular rate and rhythm , ABDOMEN: Soft , no tenderness EXTREMITIES: No edema feet - Labs CBC & Chem 7: 12/09/24 04:28 12/09/24 04:28 Labs: Abnormal Lab Results - Last 24 Hours (Table) 12/08/24 12/09/24 12/09/24 Range/Units 06:48 04:28 04:28 WBC 10.45 H (4.50-10.00) X 10*3/uL RBC 3.80 L (4.10-5.20) X 10*6/uL Hgb 11.8 L (12.0-15.0) g/dL MCV 99.2 H (80.0-97.0) FL MCHC 31.3 L (32.0-37.0) g/dL BUN/Creatinine Ratio 22.86 H (12.00-20.00) Ratio Procalcitonin 7.75 H (0.02-0.50) ng/mL Microbiology - Last 24 Hours (Table) 12/06/24 16:20 Blood Culture - Preliminary Blood Assessment and Plan (1) Diarrhea Current Visit: Yes Status: Acute Code(s): R19.7 - DIARRHEA, UNSPECIFIED SNOMED Code(s): 60529170 (2) Leukocytosis Current Visit: Yes Status: Acute Code(s): D72.829 - ELEVATED WHITE BLOOD CELL COUNT, UNSPECIFIED SNOMED Code(s): 632760895 Plan: 1patient presented to hospital with episode of unresponsiveness the patient also have diarrhea and did have significant evaded white count high clinical suspicious for possible C. difficile colitis patient did have a negative UA chest x-ray were negative for acute infiltrate 2-patient has shown clinical improvement as well as white count is almost normalized may consider finishing a 10-day course of oral vancomycin in view of clinical improvement discussed with the HEMATOLOGY ONCOLOGY CONSULTANT for admitting team Dictation was produced using [employer] dictation software. please excuse any grammatical, word or spelling errors. Time with Patient: Less than 30
[2024-12-10 07:43] VITALS: RESP 16; TEMP 97.8
--- NOTE | 2024-12-10 10:16 | P.DS ---
Providers Date of admission: 12/06/24 22:09 Expected date of discharge: 12/10/24 Attending physician: Marcelina Georges Consults: 12/07/24 22:31 Consult Physician Routine Consulting Provider: Vik Choi Consult Reason/Comments: Leukocytosis/sepsis Do you want consulting provider notified?: Yes, Notify in am Primary care physician: Marisol Yanezbagh [facility] Course: Final diagnosis -Leukocytosis/sepsis present on admission, difficult to exclude C. difficile colitis, showing clinical improvement on oral vancomycin -Intractable nausea/vomiting/diarrhea; C. difficile colitis versus acute viral syndrome -Lactic acidosis; related to dehydration, improving -Hypothyroidism history -Hypertension history -Hyperlipidemia history - History of dementia - GI prophylaxis -DVT prophylaxis -Full code Discharge disposition Patient is being discharged in a stable condition with guarded prognosis to [facility]. Patient will follow-up with Dr. Lucas in the outpatient setting upon discharge. Patient is to continue with oral Vanco 4 times daily for the next 7 days as scheduled. Total time taken is greater than 35 minutes. Hospital course This is an 89-year-old female presenting to the ER via EMS from [facility] for evaluation of diarrhea. History is limited given patient's altered mentation. Patient is ANO x 1 at baseline, per nursing staff at [facility]. Per nurse at [facility], patient was found unresponsive and quickly became responsive once staff entered her room. Patient was clammy and sweaty. Staff noted green liquid stool as well. They deny recent antibiotic use. Patient was then sent to the emergency department for further evaluation and treatment. Blood work completed in ED reveals a WBC of 22.6, hemoglobin of 14 and platelet count of 226, sodium 138, potassium 4.4, BUN/creatinine of 21/0.69, lactic acid 2.4 trending down to 1.8 after fluid bolus, total bilirubin elevated 1.5, rest of liver enzymes are within normal limit UA is unremarkable Viral drug screen is negative - Given report of green stools from the long-term, stool culture and C. difficile are ordered and patient send placed on oral vancomycin CT brain negative for acute intracranial process. Chronic changes noted. -CXR showing no focal consolidations. 12/09/2024 Patient is seen in follow-up has been evaluated by infectious disease showing clinical improvement and will continue 7 days of oral vancomycin on discharge. Patient will be returning to [facility] where she resides. Please refer to other consultation notes and dictations for further HPI. Recommend repeat labs including CBC, CMP, procalcitonin outpatient. Procalcitonin on this admission was 7.75 and initial lactic acid was 2.4 which has resolved and improved although procalcitonin not rechecked. Patient is showing clinical improvements and white count has normalized and patient is afebrile. Patient will be returning to [facility] on discharge. Patient reports is tolerating diet and normally is maintained on stool softeners and bowel regimen and recommend holding for now until stools are more formed and vancomycin has been completed. Currently no reports of chest pain, shortness of breath, or palpitations. Patient is afebrile. No reports of nausea or vomiting and patient is tolerating diet. Patient will be going to [facility] today. 12/10/2024. [facility] is able to accept the patient and will be discharged there today. Physical exam: Gen: This is a 89-year-old female who is awake, alert and oriented x 1, baseline, well-developed, elderly appearing HEENT: Head is atraumatic, normocephalic. Pupils equal, round. Sclerae is anicteric. NECK: Supple. No JVD. No lymphadenopathy. No thyromegaly. LUNGS: Diminished breath sounds bilaterally otherwise clear to auscultation. No wheezes or rhonchi. No intercostal retractions. HEART: S1, S2 are muffled ABDOMEN: Soft. Bowel sounds are present. No masses. No tenderness. EXTREMITIES: No pedal edema. No calf tenderness. NEUROLOGICAL: Patient is awake, alert and oriented x 1. Cranial nerves 2 through 12 are grossly intact. Please refer to medication reconciliation sheet for a list of medications. The impression and plan of care has been dictated by Taylor Palafox, Nurse Practitioner as directed. Dr. Elena MD I have performed a history and examination and MDM of this patient, discussed the same with the dictator, and agree with the dictator's assessment and plan as written ,documented as a scribe. Based on total visit time, I have performed more than 50% of the visit. Patient Condition at Discharge: Stable Plan - Discharge Summary Discharge Rx Participant: No New Discharge Prescriptions: New Vancomycin HCl [Vancocin HCl] 125 mg PO QID 7 Days #28 cap Continue Levothyroxine Sodium [Synthroid] 50 mcg PO DAILY@0800 Ferrous Sulfate [Iron (65 MG Elemental)] 325 mg PO DAILY@1700 Atorvastatin [Lipitor] 40 mg PO HS@2100 Na Phos,M-B/Na Phos,Di-Ba [Fleet Adult] 133 ml RECTAL DAILY PRN PRN Reason: Constipation bisacodyL [Dulcolax] 10 mg RECTAL DAILY PRN PRN Reason: Constipation Metoprolol Tartrate [Lopressor] 25 mg PO DAILY@1700 Donepezil [Aricept] 10 mg PO DAILY@0800 Magnesium Hydroxide [Milk of Magnesia Concentrate] 7,200 mg PO Q48H PRN PRN Reason: Constipation guaiFENesin [guaiFENesin Oral Solution] 200 mg PO Q4H PRN PRN Reason: Cough Acetaminophen [Acetaminophen ER] 650 mg PO Q8H PRN PRN Reason: Pain Metoprolol Tartrate [Lopressor] 50 mg PO DAILY@0800 Cholecalciferol [Vitamin D3 (25 Mcg = 1000 Iu)] 25 mcg PO DAILY@1700 Aspirin [Adult Low Dose Aspirin EC] 81 mg PO BID@0800,1700 Meloxicam [Mobic] 7.5 mg PO DAILY@0800 Ensure Enlive 120 ml PO DAILY Discontinued Docusate [Colace] 100 mg PO DAILY@0800 Discharge Medication List Levothyroxine Sodium [Synthroid] 50 mcg PO DAILY@0800 07/05/17 [History] Atorvastatin [Lipitor] 40 mg PO HS@2100 11/23/20 [History] Donepezil [Aricept] 10 mg PO DAILY@0800 11/23/20 [History] Ferrous Sulfate [Iron (65 MG Elemental)] 325 mg PO DAILY@1700 11/23/20 [History] Acetaminophen [Acetaminophen ER] 650 mg PO Q8H PRN 12/06/24 [History] Aspirin [Adult Low Dose Aspirin EC] 81 mg PO BID@0800,1700 12/06/24 [History] Cholecalciferol [Vitamin D3 (25 Mcg = 1000 Iu)] 25 mcg PO DAILY@17012/06/24 [History] Ensure Enlive 120 ml PO DAILY 12/06/24 [History] Magnesium Hydroxide [Milk of Magnesia Concentrate] 7,200 mg PO Q48H PRN 12/06/24 [History] Meloxicam [Mobic] 7.5 mg PO DAILY@0800 12/06/24 [History] Metoprolol Tartrate [Lopressor] 25 mg PO DAILY@1700 12/06/24 [History] Metoprolol Tartrate [Lopressor] 50 mg PO DAILY@0800 12/06/24 [History] Na Phos,M-B/Na Phos,Di-Ba [Fleet Adult] 133 ml RECTAL DAILY PRN 12/06/24 [History] bisacodyL [Dulcolax] 10 mg RECTAL DAILY PRN 12/06/24 [History] guaiFENesin [guaiFENesin Oral Solution] 200 mg PO Q4H PRN 12/06/24 [History] Vancomycin HCl [Vancocin HCl] 125 mg PO QID 7 Days #28 cap 12/09/24 [Rx] Follow up Appointment(s)/Referral(s): Marisol Reyes DO [Primary Care Provider] - 1-2 days Activity/Diet/Wound Care/Special Instructions: Patient is returning to [facility] Activity as tolerated Follow-up with primary care provider on discharge Continue with oral vancomycin 4 times daily for 7 days to complete the course Continue holding bowel regimen until bowel movements are more formed and regular after antibiotics Continue regular diet Discharge Disposition: TRANSFER TO SNF/ECF
[2024-12-10 13:11] VITALS: BP 167/85; PULSE 65
--- NOTE | 2024-12-10 14:55 | P.PN ---
Subjective Progress Note Date: 12/10/24 Principal diagnosis: Reason for follow-up is leukocytosis and diarrhea Patient is a 89-year-old female with a past medical history significant for GERD/Reflux, Hyperlipidemia, Osteoarthritis (OA), Thyroid Disorder and group home resident patient was sent to the hospital for evaluation of diarrhea and mental status changes patient did have elevated white count. On today's evaluation that is 12/10/2024, Patient is afebrile this morning patient is breathing comfortably currently on room air no chest pain shortness of breath or cough no abdominal pain or diarrhea. No new lab has been obtained today Objective - Vital Signs Vital signs: Vital Signs Temp 97.8 F 12/10/24 07:32 Pulse 76 12/10/24 07:32 Resp 16 12/10/24 07:32 BP 166/91 12/10/24 07:32 Pulse Ox 96 12/10/24 07:32 FiO2 Intake & Output 12/09/24 12/10/24 12/10/24 18:59 06:59 18:59 Intake Total 780 320 Output Total 425 Balance 780 -105 Intake: Oral 780 320 Output: Urine 425 Other: Voiding Method Diaper Diaper Diaper External Catheter Incontinent Incontinent # Voids 4 - Exam GENERAL DESCRIPTION: An elderly male up in the chair in no distress RESPIRATORY SYSTEM: Unlabored breathing , decreased breath sounds at bases HEART: S1 S2 regular rate and rhythm , ABDOMEN: Soft , no tenderness EXTREMITIES: No edema feet - Labs CBC & Chem 7: 12/09/24 04:28 12/09/24 04:28 Labs: Microbiology - Last 24 Hours (Table) 12/06/24 16:20 Blood Culture - Preliminary Blood Assessment and Plan (1) Diarrhea Status: Acute Code(s): R19.7 - DIARRHEA, UNSPECIFIED SNOMED Code(s): 09451902 (2) Leukocytosis Status: Acute Code(s): D72.829 - ELEVATED WHITE BLOOD CELL COUNT, UNSPECIFIED SNOMED Code(s): 648200448 Plan: 1patient presented to hospital with episode of unresponsiveness the patient also have diarrhea and did have significant evaded white count high clinical suspicious for possible C. difficile colitis patient did have a negative UA chest x-ray were negative for acute infiltrate 2-patient has shown clinical improvement as well as white count is almost normalized as of yesterday on oral vancomycin, will continue to finish a 10-day course of therapy and close outpatient follow-up Dictation was produced using [employer] dictation software. please excuse any grammatical, word or spelling errors. Time with Patient: Less than 30
== END 2024-12-10 13:53 ==
LOC: EC 14:37 → 4SSUR 22:09 → 5NMEDONC 12-07 01:59
PROVIDERS: ADMIT Hospitalist; ATTEND Hospitalist
DX: A41.9 Sepsis, unspecified organism (principal); E87.20 Acidosis, unspecified; R19.7 Diarrhea, unspecified; E03.9 Hypothyroidism, unspecified; I10 Essential (primary) hypertension; E78.5 Hyperlipidemia, unspecified; F03.90 Unspecified dementia, unspecified severity, without behavioral disturbance, psychotic disturbance, mood disturbance, and anxiety; K21.9 Gastro-esophageal reflux disease without esophagitis; R73.03 Prediabetes; Z11.52 Encounter for screening for COVID-19; Z86.73 Personal history of transient ischemic attack (TIA), and cerebral infarction without residual deficits; Z79.1 Long term (current) use of non-steroidal anti-inflammatories (NSAID); Z79.82 Long term (current) use of aspirin; Z79.890 Hormone replacement therapy; Z79.899 Other long term (current) drug therapy; Z88.0 Allergy status to penicillin; Z88.5 Allergy status to narcotic agent; Z91.040 Latex allergy status
CPT/HCPCS: 99285; 36415; 93005; 80053; 80048 ×2; 82150; 83605 ×2; 83690; 85025 ×3; 81001; 87040; 84145; 87636; 71046; 70450; G0378 ×5

== ENCOUNTER 2024-12-22 09:53 | Inpatient (IN) | payer MEDICARE, OTHER ==
[2024-12-22 10:12] LABS: Glucose,Whole Blood 143 mg/dL (70-110)
--- NOTE | 2024-12-22 11:00 | XR ---
EXAMINATION TYPE: XR chest 2V DATE OF EXAM: 12/22/2024 10:55 AM COMPARISON: Chest radiographs from 12/06/2024 TECHNIQUE: XR chest 2V Frontal and lateral views of the chest. CLINICAL INDICATION:Female, 89 years old with history of Weakness; FINDINGS: Lungs/Pleura: No pneumothorax. No pleural effusion or focal consolidation. Elevation of the left barron diaphragm Pulmonary vascularity: Unremarkable. Heart/mediastinum: Cardiomediastinal silhouette is enlarged and stable. Musculoskeletal: No acute osseous pathology. Left shoulder arthroplasty changes. IMPRESSION: 1. No acute cardiopulmonary disease/process. 2. Chronic elevation of the left hemidiaphragm. 3. Cardiomegaly. [facility], , 12/22/2024 10:57 AM
[2024-12-22 11:05] LABS: ALT 16 U/L (4-34); AST 20 U/L (14-36); African American GFR (CKD) 76 (>60 ml/min/1.73 sqM); Albumin 3.8 g/dL (3.5-5.0); Alkaline Phosphatase 95 U/L (38-126); Anion Gap 8 mmol/L; Blood Urea Nitrogen 21 mg/dL (7-17); Calcium 9.6 mg/dL (8.4-10.2); Carbon Dioxide 26 mmol/L (22-30); Chloride 105 mmol/L (98-107); Glucose 146 mg/dL (74-99); Non-African American GFR(CKD) 66 (>60 ml/min/1.73 sqM); Sodium 139 mmol/L (137-145); Total Bilirubin 1.8 mg/dL (0.2-1.3); Total Protein 6.2 g/dL (6.3-8.2)
[2024-12-22 11:11] LABS: Basophils # (A) 0.05 10*3/uL (0.00-0.10); Basophils % (A) 0.4 %; Eosinophils # (A) 0.04 10*3/uL (0.04-0.35); Eosinophils % (A) 0.3 %; HCT 40.9 % (37.2-46.3); HGB 13.2 g/dL (12.0-15.0); Lymphocytes # (A) 1.32 10*3/uL (0.90-5.00); Lymphocytes % (A) 11.1 %; MCH 30.9 pg (27.0-32.0); MCHC 32.3 g/dL (32.0-37.0); MCV 95.8 fL (80.0-97.0); Mean Platelet Volume 10.6 fL (9.5-12.2); Monocytes # (A) 0.78 10*3/uL (0.20-1.00); Monocytes % (A) 6.6 %; Neutrophils # (A) 9.61 10*3/uL (1.80-7.70); Neutrophils % (A) 81.3 %; Platelet Count 298 10*3/uL (140-440); RBC 4.27 10*6/uL (4.10-5.20); RDW 13.7 % (11.5-14.5); WBC 11.84 10*3/uL (4.50-10.00)
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
[2024-12-22] MEDS: SODIUM CHLORIDE 0.9% 500 ML IV ONE (11:18)
[2024-12-22] MEDS ORDERED: NALOXONE 0.4 MG/ML 1 ML VIAL IV PRN (13:05)
[2024-12-22] MEDS ORDERED: HEPARIN SODIUM 1,000 UN/ML (10ML VL) IV PRN (14:37)
[2024-12-22] MEDS: HEPARIN SOD,PORK IN 0.45% NACL 25,000 UNIT in 0.45% NACL 1 250ML.BAG IV SCH (14:56)
[2024-12-22] MEDS: HEPARIN SODIUM 1,000 UN/ML (10ML VL) IV ONE (14:56)
[2024-12-22] MEDS: ASPIRIN 325 MG TAB PO STA (14:57)
[2024-12-23 07:38] LABS: Basophils # (A) 0.08 10*3/uL (0.00-0.10); Basophils % (A) 0.9 %; Eosinophils # (A) 0.12 10*3/uL (0.04-0.35); Eosinophils % (A) 1.4 %; HCT 38.4 % (37.2-46.3); HGB 12.2 g/dL (12.0-15.0); Lymphocytes # (A) 2.02 10*3/uL (0.90-5.00); Lymphocytes % (A) 23.7 %; MCH 30.8 pg (27.0-32.0); MCHC 31.8 g/dL (32.0-37.0); Mean Platelet Volume 10.3 fL (9.5-12.2); Monocytes # (A) 0.89 10*3/uL (0.20-1.00); Monocytes % (A) 10.5 %; Neutrophils # (A) 5.39 10*3/uL (1.80-7.70); Neutrophils % (A) 63.4 %; Platelet Count 245 10*3/uL (140-440); RBC 3.96 10*6/uL (4.10-5.20); RDW 13.9 % (11.5-14.5); WBC 8.51 10*3/uL (4.50-10.00)
[2024-12-23 07:49] LABS: INR 1.1 (<1.2); Partial Thromboplastin Time 57.5 sec (22.0-30.0); Prothrombin Time 12.1 sec (10.0-12.5)
[2024-12-23 08:17] LABS: African American GFR (CKD) 82 (>60 ml/min/1.73 sqM); Anion Gap 6 mmol/L; Blood Urea Nitrogen 20 mg/dL (7-17); Calcium 8.9 mg/dL (8.4-10.2); Carbon Dioxide 25 mmol/L (22-30); Chloride 106 mmol/L (98-107); Non-African American GFR(CKD) 71 (>60 ml/min/1.73 sqM); Potassium 4.4 mmol/L (3.5-5.1); Sodium 137 mmol/L (137-145)
[2024-12-23] MEDS ORDERED: NA PHOS,M-B/NA PHOS,DI-BA 133 ML ENEMA RECTAL PRN (08:27)
[2024-12-23] MEDS ORDERED: MAGNESIUM HYDROXIDE 2,400 MG/30 ML CUP PO PRN (08:27)
[2024-12-23] MEDS ORDERED: guaiFENesin SYRUP 100MG/5ML 200 MG/10 ML CUP PO PRN (08:27)
[2024-12-23] MEDS ORDERED: bisacodyL 10 MG SUPP RECTAL PRN (08:27)
[2024-12-23 08:50] LABS: Glucose 111 mg/dL (74-99)
[2024-12-23] MEDS: LEVOTHYROXINE 50 MCG TAB PO SCH (09:37)
[2024-12-23] MEDS: DONEPEZIL 10 MG TAB PO SCH (09:37)
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
[2024-12-23 15:56] LABS: Chol/HDL Ratio 3.07 Ratio; LDL Cholesterol,Calculated 61.2 mg/dL (0.0-131.0)
[2024-12-23] MEDS ORDERED: ASPIRIN 81 MG PO SCH (17:00)
[2024-12-23] MEDS: FERROUS SULFATE 325 MG TAB PO SCH (17:15)
[2024-12-23] MEDS: METOPROLOL TARTRATE 25 MG TAB PO SCH (17:15)
[2024-12-23] MEDS: ATORVASTATIN 40 MG TAB PO SCH (19:43)
[2024-12-23 23:14] VITALS: TEMP 98.1
[2024-12-24 07:36] LABS: HCT 35.3 % (37.2-46.3); HGB 11.3 g/dL (12.0-15.0); MCH 30.9 pg (27.0-32.0); MCV 96.4 fL (80.0-97.0); Mean Platelet Volume 10.8 fL (9.5-12.2); Platelet Count 247 10*3/uL (140-440); RBC 3.66 10*6/uL (4.10-5.20); RDW 13.9 % (11.5-14.5); WBC 7.52 10*3/uL (4.50-10.00)
[2024-12-24 08:10] LABS: ALT 13 U/L (4-34); AST 17 U/L (14-36); African American GFR (CKD) 72 (>60 ml/min/1.73 sqM); Albumin 3.1 g/dL (3.5-5.0); Alkaline Phosphatase 92 U/L (38-126); Anion Gap 8 mmol/L; Blood Urea Nitrogen 19 mg/dL (7-17); Calcium 8.6 mg/dL (8.4-10.2); Carbon Dioxide 23 mmol/L (22-30); Chloride 106 mmol/L (98-107); Glucose 101 mg/dL (74-99); Non-African American GFR(CKD) 62 (>60 ml/min/1.73 sqM); Potassium 4.1 mmol/L (3.5-5.1); Sodium 137 mmol/L (137-145); Total Bilirubin 2.1 mg/dL (0.2-1.3); Total Protein 5.2 g/dL (6.3-8.2)
[2024-12-24] MEDS: MELOXICAM 7.5 MG TAB PO SCH (08:15)
[2024-12-24] MEDS: ASPIRIN 81 MG PO SCH (08:15)
[2024-12-24] MEDS: METOPROLOL TARTRATE 50 MG TAB PO SCH (08:15)
--- NOTE | 2024-12-24 11:40 | P.PN ---
Subjective Progress Note Date: 12/24/24 History of present illness; Patient is a 89-year-old female with dementia, hypothyroidism, hyperlipidemia, history of CVA who presents for a near syncopal episode. Patient is a resident at [facility]. She was in her wheelchair when staff noted that she got very diaphoretic and pale, and reported dizziness at the time. She was also noted to have hypotension and hypothermia by [facility] staff. She does have advanced dementia and poor historian. Currently at baseline mentation. She is denying any chest pain, shortness of breath, nausea, vomiting, constipation, diarrhea, dysuria, dizziness, weakness. 12/24. Patient seen and examined at bedside. No acute events overnight. Hemoglobin 11.3, BUN 19, total bilirubin 2.1, lipid panel is WNL PHYSICAL EXAMINATION: Vitals reviewed GENERAL: Resting comfortably in bed. EYES: PERRL, no scleral injection or icterus. HENT: Normocephalic, atraumatic, hearing grossly intact, moist mucous membranes NECK: No tracheal deviation, full range of motion. CARDIOVASCULAR: S1 and S2 present. No murmurs, rubs, or gallops. PULMONARY: Chest is clear to auscultation, no wheezing, rhonchi, or crackles. ABDOMEN: Soft, nontender, nondistended. No palpable organomegaly. MUSCULOSKELETAL: No apparent joint swelling and deformities. EXTREMITIES: No apparent cyanosis, clubbing. No pedal edema. NEUROLOGICAL: Alert and oriented x1 to person. Gross neurological examination with no apparent focal deficits. SKIN: No apparent rashes. Assessment and Plan: In summary, patient is a 89-year-old female with dementia, hypothyroidism, hyperlipidemia, history of CVA who presents for a near syncopal episode. #Presyncope # NSTEMI - Troponin 0.666 => 0.482 => 0.484 Discontinue Heparin infusion for 24 hours Continue Metoprolol twice daily, Lipitor 40 mg daily, Aspirin 81 mg daily Continue cardiac monitoring HbA1c ordered Echocardiogram ordered Medical management, no plans for cardiac catheterization - PT/OT consulted Cardiology consulted #Elevated bilirubin Patient currently asymptomatic US RUQ abdomen ordered Monitor CMP #Leukocytosis, resolved Chronic Medical Conditions #History of CVA #Dementia #Hypothyroidism #Hyperlipidemia Resume home medications DVT ppx: Subcu heparin 5000 units twice daily Code status: no code F: PO E: Replete as needed N: Heart healthy diet A: uses wheelchair Anticipated discharge place: [facility] Anticipated discharge time: [address] Jin seen patient with resident, present during exam, and agreed with findings. Dictation was produced using [employer] dictation software. Please excuse any grammatical, word or spelling errors. Objective - Vital Signs Vital signs: Vital Signs Temp 98.1 F 12/24/24 08:10 Pulse 80 12/24/24 08:10 Resp 18 12/24/24 08:10 BP 114/74 12/24/24 08:10 Pulse Ox 95 12/24/24 08:10 FiO2 Intake & Output 12/23/24 12/24/24 12/24/24 18:59 06:59 18:59 Intake Total 469.192 10 Balance 469.192 10 Weight 70 kg Intake: IV 10 Invasive Line 1 10 Intake, IV Titration 229.192 Amount Heparin Sod,Pork in 0.45% 229.192 NaCl 25,000 unit In 0.45 % NaCl 1 250ml.bag @ 12 UNITS/KG/HR 8.709 mls/hr IV .Q24H [facility] Rx#: [id number] Oral 240 Other: Voiding Method Diaper Diaper Diaper # Voids 1 1 1 # Bowel Movements 1 - Labs CBC & Chem 7: 12/24/24 06:15 12/24/24 06:15 Labs: Abnormal Lab Results - Last 24 Hours (Table) 12/24/24 12/24/24 12/24/24 Range/Units 06:15 06:15 06:15 RBC 3.66 L (4.10-5.20) 10*6/uL Hgb 11.3 L (12.0-15.0) g/dL Hct 35.3 L (37.2-46.3) % APTT 55.4 H (22.0-30.0) sec BUN 19 H (7-17) mg/dL Glucose 101 H (74-99) mg/dL Total Bilirubin 2.1 H (0.2-1.3) mg/dL Total Protein 5.2 L (6.3-8.2) g/dL Albumin 3.1 L (3.5-5.0) g/dL
--- NOTE | 2024-12-24 11:43 | CA ---
Transthoracic Echo Report Name: Radha Morales Age: 89 Gender: F : 1935 Exam Date: 12/24/2024 08:19 Exam Location: [facility] Ht (in): 65 Wt (lb): 160 Ordering Physician: Celeste Murcia DO Attending/Referring Phys: [id number], [employer] Sherie Neumann, BERNARDA Procedure CPT: Indications: elevated trop Cardiac Hx: Technical Quality: Poor Contrast 1: Total Dose (mL): Contrast 2: Total Dose (mL): MEASUREMENTS (Male / Female) Normal Values 2D ECHO LV Diastolic Diameter PLAX 3.1 cm 4.2 - 5.9 / 3.9 - 5.3 cm LV Systolic Diameter PLAX 2.0 cm IVS Diastolic Thickness 1.0 cm 0.6 - 1.0 / 0.6 - 0.9 cm LVPW Diastolic Thickness 0.8 cm 0.6 - 1.0 / 0.6 - 0.9 cm LV Relative Wall Thickness 0.6 LVOT Diameter 1.8 cm DOPPLER TR Peak Velocity 303.9 cm/s TR Peak Gradient 36.9 mmHg FINDINGS Left Ventricle Left ventricular ejection fraction is estimated at 65 %. Unable to comment on wall motion. Right Ventricle Right Atrium Left Atrium Mitral Valve Aortic Valve Trileaflet aortic valve. Tricuspid Valve Structurally normal tricuspid valve. No tricuspid stenosis. Mild tricuspid regurgitation. Pulmonic Valve Pulmonic valve not well visualized. No pulmonic stenosis. No pulmonic regurgitation. Pericardium No pericardial effusion. Aorta Normal size aortic root and proximal ascending aorta. CONCLUSIONS Limited exam secondary to patient's compliance Hyperdynamic left ventricular ejection fraction 65% Mild tricuspid regurgitation No pericardial effusion Previewed by: Dr. Mariusz Lamas DO (Electronically Signed) Final Date: 24 December 2024 11:42
--- NOTE | 2024-12-24 12:41 | P.PN ---
Subjective HISTORY OF PRESENT ILLNESS: This is a 89-year-old female with a past medical history significant for dementia, hypertension, hyperlipidemia, and CVA. Patient follows in the office with Dr. Oconnor but has not been seen since 2021. We have been asked to see the patient in consultation for presyncope. Patient examined at the bedside. Patient has a history of dementia and is a poor historian. There is no family present. According to the ER dictation, the patient was brought from [facility] as the staff noted she was diaphoretic and pale. Apparently the patient reported that she was dizzy. The staff at [facility] noted that she was hypotensive. However patient's vital signs have been stable since coming to the hospital. Patient currently denies any chest pain or pressure. She denies any shortness of breath. Denies any dizziness or lightheadedness. DIAGNOSTICS: - EKG reveals sinus mechanism with no signs of acute ischemia. - Chest xray negative for acute process. Chronic elevation of left hemidiaphragm. Cardiomegaly.. - Laboratory data: WBC 8.51. Hemoglobin 12.2. Platelet count 245. Sodium 137. Potassium 4.4. BUN 20. Creatinine 0.76. Troponin 0.666. 0.482. 0.484. TSH 2.130. - Current home cardiac medications include Lipitor 40 mg at night, metoprolol tartrate 50 mg daily and 25 mg in the afternoon, aspirin 81 mg twice a day. - Most recent echocardiogram obtained in October 2020 revealing ejection fraction 55 to 60%, mild mitral regurgitation - Cardiac catheterization history: Unknown 12/24/2024 Patient examined this morning at the bedside. Patient denies chest pain or pressure. She denies shortness of breath. Echocardiogram completed revealing hyperdynamic left ventricular ejection fraction of 65% with mild TR. PHYSICAL EXAM: VITAL SIGNS: Reviewed. GENERAL: Well-developed in no acute distress. HEENT: Head is normocephalic. Pupils are equal, round. Sclerae anicteric. Mucous membranes of the mouth are moist. Neck supple. No JVD or thyromegaly LUNGS: Respirations even and unlabored. Lungs essentially clear to auscultation bilaterally. HEART: Regular rate and rhythm. S1 and S2 heard. ABDOMEN: Soft. Nondistended. Nontender. EXTREMITIES: Normal range of motion. No clubbing or cyanosis. Peripheral pulses intact. No lower extremity edema NEUROLOGIC: Awake and alert. ASSESSMENT: Presyncope Non-STEMI Hypertension Hyperlipidemia History of CVA History of dementia PLAN: Continue current cardiac medications Patient is currently stable for discharge from a cardiac standpoint with no further inpatient recommendations Discharge per medicine Nurse practitioner note has been reviewed by physician. Signing provider agrees with the documented findings, assessment, and plan of care documented by [employer] as a scribe. Objective - Vital Signs Vital signs: Vital Signs Temp 98.1 F 12/24/24 08:10 Pulse 59 L 12/24/24 12:25 Resp 16 12/24/24 12:25 BP 110/73 12/24/24 12:25 Pulse Ox 93 L 12/24/24 12:25 FiO2 Intake & Output 12/23/24 12/24/24 12/24/24 18:59 06:59 18:59 Intake Total 469.192 295.503 Balance 469.192 295.503 Weight 70 kg Intake: IV 10 Invasive Line 1 10 Intake, IV Titration 229.192 167.503 Amount Heparin Sod,Pork in 0.45% 229.192 167.503 NaCl 25,000 unit In 0.45 % NaCl 1 250ml.bag @ 12 UNITS/KG/HR 8.709 mls/hr IV .Q24H ELVIA Rx#: [id number] Oral 240 118 Other: Voiding Method Diaper Diaper Diaper # Voids 1 1 1 # Bowel Movements 1 - Labs CBC & Chem 7: 12/24/24 06:15 12/24/24 06:15 Labs: Abnormal Lab Results - Last 24 Hours (Table) 12/24/24 12/24/24 12/24/24 Range/Units 06:15 06:15 06:15 RBC 3.66 L (4.10-5.20) 10*6/uL Hgb 11.3 L (12.0-15.0) g/dL Hct 35.3 L (37.2-46.3) % APTT 55.4 H (22.0-30.0) sec BUN 19 H (7-17) mg/dL Glucose 101 H (74-99) mg/dL Total Bilirubin 2.1 H (0.2-1.3) mg/dL Total Protein 5.2 L (6.3-8.2) g/dL Albumin 3.1 L (3.5-5.0) g/dL
--- NOTE | 2024-12-24 14:20 | P.DS ---
Providers Date of admission: 12/22/24 13:05 Expected date of discharge: 12/24/24 Attending physician: Scotty Jin MD Consults: 12/22/24 13:05 Consult Physician Urgent Consulting Provider: [facility] Consult Reason/Comments: elevated trop Do you want consulting provider notified?: Yes [facility]: Discharge diagnoses; #Presyncope #NSTEMI #Elevated bilirubin #Leukocytosis, resolved #History of CVA #Dementia #Hypothyroidism #Hyperlipidemia Hospital course; History of present illness; Patient is a 89-year-old female with dementia, hypothyroidism, hyperlipidemia, history of CVA who presents for a near syncopal episode. Patient is a resident at [facility]. She was in her wheelchair when staff noted that she got very diaphoretic and pale, and reported dizziness at the time. She was also noted to have hypotension and hypothermia by [facility] staff. She does have advanced dementia and poor historian. Currently at baseline mentation. She is denying any chest pain, shortness of breath, nausea, vomiting, constipation, diarrhea, dysuria, dizziness, weakness. During hospital stay patient was seen by cardiology for NSTEMI, echocardiogram with hyperdynamic left ventricular EF 65%. Patient is discharged in stable condition to [facility]. She may resume all of her home medications, no changes at this time. She has a follow-up with her PCP. PHYSICAL EXAMINATION: Vitals reviewed GENERAL: Resting comfortably in bed. CARDIOVASCULAR: S1 and S2 present. No murmurs, rubs, or gallops. PULMONARY: Chest is clear to auscultation, no wheezing, rhonchi, or crackles. ABDOMEN: Soft, nontender, nondistended. No palpable organomegaly. MUSCULOSKELETAL: No apparent joint swelling and deformities. EXTREMITIES: No apparent cyanosis, clubbing. No pedal edema. NEUROLOGICAL: Alert and oriented x1 to person. Gross neurological examination with no apparent focal deficits. SKIN: No apparent rashes. Dr. Jin seen patient with resident, present during exam, and agreed with findings. Dictation was produced using [employer] dictation software. please excuse any grammatical, word or spelling errors. Patient Condition at Discharge: Stable Plan - Discharge Summary Discharge Rx Participant: No New Discharge Prescriptions: No Action Levothyroxine Sodium [Synthroid] 50 mcg PO DAILY@0800 Ferrous Sulfate [Iron (65 MG Elemental)] 325 mg PO DAILY@1700 Atorvastatin [Lipitor] 40 mg PO HS@2100 Na Phos,M-B/Na Phos,Di-Ba [Fleet Adult] 133 ml RECTAL DAILY PRN PRN Reason: Constipation bisacodyL [Dulcolax] 10 mg RECTAL DAILY PRN PRN Reason: Constipation Metoprolol Tartrate [Lopressor] 25 mg PO DAILY@1700 Magic Cup 1 dose PO DAILY@1200 Donepezil [Aricept] 10 mg PO DAILY@0800 Magnesium Hydroxide [Milk of Magnesia Concentrate] 7,200 mg PO Q48H PRN PRN Reason: Constipation guaiFENesin [guaiFENesin Oral Solution] 200 mg PO Q4H PRN PRN Reason: Cough Acetaminophen [Acetaminophen ER] 650 mg PO Q8H PRN PRN Reason: Pain Metoprolol Tartrate [Lopressor] 50 mg PO DAILY@0800 Cholecalciferol [Vitamin D3 (25 Mcg = 1000 Iu)] 25 mcg PO DAILY@1700 Aspirin [Adult Low Dose Aspirin EC] 81 mg PO BID@0800,1700 Meloxicam [Mobic] 7.5 mg PO DAILY@0800 Ensure Enlive 120 ml PO DAILY@0800 Discharge Medication List Levothyroxine Sodium [Synthroid] 50 mcg PO DAILY@0800 07/05/17 [History] Atorvastatin [Lipitor] 40 mg PO HS@2100 11/23/20 [History] Donepezil [Aricept] 10 mg PO DAILY@0800 11/23/20 [History] Ferrous Sulfate [Iron (65 MG Elemental)] 325 mg PO DAILY@1700 11/23/20 [History] Acetaminophen [Acetaminophen ER] 650 mg PO Q8H PRN 12/06/24 [History] Aspirin [Adult Low Dose Aspirin EC] 81 mg PO BID@0800,1700 12/06/24 [History] Cholecalciferol [Vitamin D3 (25 Mcg = 1000 Iu)] 25 mcg PO DAILY@17012/06/24 [History] Ensure Enlive 120 ml PO DAILY@0800 12/06/24 [History] Magnesium Hydroxide [Milk of Magnesia Concentrate] 7,200 mg PO Q48H PRN 12/06/24 [History] Meloxicam [Mobic] 7.5 mg PO DAILY@0800 12/06/24 [History] Metoprolol Tartrate [Lopressor] 25 mg PO DAILY@1700 12/06/24 [History] Metoprolol Tartrate [Lopressor] 50 mg PO DAILY@0800 12/06/24 [History] Na Phos,M-B/Na Phos,Di-Ba [Fleet Adult] 133 ml RECTAL DAILY PRN 12/06/24 [Histor y] bisacodyL [Dulcolax] 10 mg RECTAL DAILY PRN 12/06/24 [History] guaiFENesin [guaiFENesin Oral Solution] 200 mg PO Q4H PRN 12/06/24 [History] Magic Cup 1 dose PO DAILY@1200 12/22/24 [History] Follow up Appointment(s)/Referral(s): Marisol Reyes DO [Primary Care Provider] - 1-2 days
--- NOTE | 2024-12-24 14:45 | US ---
EXAMINATION TYPE: US abdomen limited DATE OF EXAM: 12/24/2024 COMPARISON: NONE CLINICAL INDICATION: Female, 89 years old with history of elevated bilirubin; elevated labs TECHNIQUE: Grayscale and color Doppler imaging of the right upper quadrant was performed. FINDINGS: EXAM MEASUREMENTS: Liver Length: 14.8 cm Gallbladder Wall: 0.2 cm CBD: 0.4 cm Right Kidney: 9.1 x 3.2 x 3.9 cm CALL TAKER NOTES: bowel gas limits study Pancreas: not seen, bowel gas Liver: intercostal imaging due to bowel gas. No discrete abnormality seen. Gallbladder: wnl Evidence for sonographic Brower's sign: no CBD: wnl Right Kidney: limited views are wnl. No hydronephrosis. IMPRESSION: Limitations due to bowel gas. No gallstones or biliary ductal dilatation. [facility], Workstation: [facility] CENTERVisualaseSEE, 12/24/2024 2:43 PM
[2024-12-24 16:09] VITALS: BP 136/77; PULSE 65; RESP 18
== END 2024-12-24 16:28 | DRG 282 ==
LOC: EC 09:53 → 3SCARD 13:05
PROVIDERS: ADMIT Internal Medicine; ATTEND Internal Medicine
DX: I21.4 Non-ST elevation (NSTEMI) myocardial infarction (principal); T68.XXXA Hypothermia, initial encounter; I95.9 Hypotension, unspecified; F03.90 Unspecified dementia, unspecified severity, without behavioral disturbance, psychotic disturbance, mood disturbance, and anxiety; E03.9 Hypothyroidism, unspecified; I10 Essential (primary) hypertension; D72.829 Elevated white blood cell count, unspecified; R55 Syncope and collapse; E78.5 Hyperlipidemia, unspecified; E80.7 Disorder of bilirubin metabolism, unspecified; Z96.612 Presence of left artificial shoulder joint; Z86.73 Personal history of transient ischemic attack (TIA), and cerebral infarction without residual deficits; Z79.890 Hormone replacement therapy; Z79.82 Long term (current) use of aspirin; Z79.899 Other long term (current) drug therapy; Z88.0 Allergy status to penicillin; Z88.5 Allergy status to narcotic agent; Z79.1 Long term (current) use of non-steroidal anti-inflammatories (NSAID)
CPT/HCPCS: 36415; 71046; 76705; 80048; 80053; 80061; 83036; 83605; 84443; 84484; 85025; 85027; 85610; 85730; 93005; 93308; 96374; 99285

== ENCOUNTER 2025-02-20 16:43 | Emergency (ER) | payer MEDICARE, OTHER ==
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
[2025-02-20 18:38] VITALS: TEMP 97.7
[2025-02-20 18:55] VITALS: BP 123/84; PULSE 78; RESP 18
== END 2025-02-20 19:14 | disposition home or self-care (01) ==
LOC: EC 16:43
DX: I82.412 Acute embolism and thrombosis of left femoral vein (principal); Z88.0 Allergy status to penicillin; Z88.8 Allergy status to other drugs, medicaments and biological substances; Z91.040 Latex allergy status
CPT/HCPCS: 99283